=== PATIENT | female | born 1940 | race Asian ===

== ENCOUNTER → 2016-09-11 | Outpatient (REF) | payer MEDICARE, OTHER ==
[2016-09-11 14:53] LABS: MEAN CORPUSCULAR HGB CONC 33.8 g/dl (32.0-36.5); MEAN CORPUSCULAR VOLUME 94.6 fl (80.0-96.0); RED CELL DISTRIBUTION WIDTH 11.5 % (11.5-14.5); WHITE BLOOD COUNT 3.8 K/mm3 (4.0-10.0)
[2016-09-11 15:02] LABS: ALBUMIN 4.1 GM/DL (3.2-5.2); ALBUMIN/GLOBULIN RATIO 1.08 (1.00-1.93); BILIRUBIN,TOTAL 0.5 MG/DL (0.2-1.0); CALCIUM LEVEL 9.4 MG/DL (8.8-10.2); CREATININE FOR GFR 1.11 MG/DL (0.55-1.02); PERCENT SATURATION 30.9 % (13.2-37.4); POTASSIUM SERUM 3.8 MEQ/L (3.5-5.1); TOTAL PROTEIN 7.9 GM/DL (6.4-8.2)
== END ==
LOC: M SFHCLACO 09:43
PROVIDERS: ATTEND Physician Assistant
DX: D50.8 Other iron deficiency anemias (principal); I10 Essential (primary) hypertension; E78.2 Mixed hyperlipidemia; E11.21 Type 2 diabetes mellitus with diabetic nephropathy

== ENCOUNTER → 2016-12-25 | Outpatient (CLI) | payer MEDICARE, OTHER ==
[~2016-12-25] MED LIST: ACET1TAB17 PO; ALEN70TA39 PO; AMLO10TA2 PO; ATOR1TAB19 PO; CALC1TAB74 PO; DOCU100C16 PO; FISH100049 PO; HYDR25TAB PO; LOSA100T36 PO; OMEP40CA2 PO; POTA10CA PO; SITA50TAB PO; VITA50TA49 PO; VITMTA PO
--- NOTE | 2016-12-25 11:23 | REPMRS ---
Patient History The patient states she had a clinical breast exam in Patient is postmenopausal. No known family history of cancer. Digital Woman Screen Mammo: December 25, 2016 - Exam #: [id number] Bilateral CC and MLO view(s) were taken. Technologist: Deanna Ramos, Technologist Prior study comparison: December 13, 2015, digital woman screen mammo performed at [facility]. December 12, 2014, digital woman screen mammo performed at [facility]. November 15, 2013, digital woman screen mammo performed at [facility]. FINDINGS: The breast tissue is heterogeneously dense. This may lower the sensitivity of mammography. There is a moderate amount of heterogeneously dense fibroglandular tissue which is fairly symmetric. There is no interval development of dominant mass, architectural distortion, or clustered microcalcification typical of malignancy. There has been no change in the appearance of the mammogram from the prior studies. ASSESSMENT: BI-RADS/ACR category 1 mammogram. Negative. Recommendation Routine screening mammogram of both breasts in 1 year (for women over age 40). This mammogram was interpreted with the aid of an FDA-approved computer-aided dectection system. Electronically Signed By: Emery Baum MD 12/25/16 0023
== END ==
LOC: M WHC 09:39
PROVIDERS: ATTEND Physician Assistant
DX: Z12.31 Encounter for screening mammogram for malignant neoplasm of breast (principal)

== ENCOUNTER → 2017-03-31 | Outpatient (REF) | payer MEDICARE, OTHER ==
[2017-03-31 16:25] LABS: ALBUMIN 3.9 GM/DL (3.2-5.2); ALBUMIN/GLOBULIN RATIO 1.15 (1.00-1.93); BILIRUBIN,TOTAL 0.5 MG/DL (0.2-1.0); CALCIUM LEVEL 9.7 MG/DL (8.8-10.2); CREATININE FOR GFR 1.22 MG/DL (0.55-1.02); GLOMERULAR FILTRATION RATE 45.7 (>39); PERCENT SATURATION 19.9 % (13.2-45.0); POTASSIUM SERUM 4.5 MEQ/L (3.5-5.1); TOTAL PROTEIN 7.3 GM/DL (6.4-8.2)
[2017-03-31 23:23] LABS: MEAN CORPUSCULAR HGB CONC 33.7 g/dl (32.0-36.5); MEAN CORPUSCULAR VOLUME 97.7 fl (80.0-96.0); RED CELL DISTRIBUTION WIDTH 12.2 % (11.5-14.5); WHITE BLOOD COUNT 4.3 10^3/uL (4.0-10.0)
== END ==
LOC: M SFHCLACO 09:35
PROVIDERS: ATTEND Physician Assistant
DX: D50.8 Other iron deficiency anemias (principal); I10 Essential (primary) hypertension; E78.2 Mixed hyperlipidemia; E11.21 Type 2 diabetes mellitus with diabetic nephropathy

== ENCOUNTER 2017-04-17 11:28 | Day surgery (SDC) | payer MEDICARE, OTHER ==
[~2017-04-17] VITALS: Ht 157.5 cm; Wt 54.3 kg
[2017-04-17] MEDS: NS 1,000 ML IV SCH (12:06)
[2017-04-17 12:12] LABS: BASO % 0.4 % (0.0-1.0); EOS # 0.1 10^3/uL (0.0-0.50); EOS % 1.1 % (0.0-3.0); IMMATURE GRANULOCYTE % 0.2 % (0-0); LYMPH # 1.4 10^3/uL (1.5-4.5); LYMPH % 30.4 % (24.0-44.0); MEAN CORPUSCULAR HEMOGLOBIN 33.4 pg (27.0-33.0); MEAN CORPUSCULAR HGB CONC 34.4 g/dl (32.0-36.5); MEAN CORPUSCULAR VOLUME 97.1 fl (80.0-96.0); MONO # 0.5 10^3/uL (0.0-0.8); MONO % 9.6 % (0.0-5.0); NEUTROPHILS # 2.8 10^3/uL (1.8-7.7); NEUTROPHILS % 58.3 % (36.0-66.0); PLATELET COUNT, AUTOMATED 249 10^3/uL (150-450); RED CELL DISTRIBUTION WIDTH 12.1 % (11.5-14.5); WHITE BLOOD COUNT 4.7 10^3/uL (4.0-10.0)
--- NOTE | 2017-04-17 12:25 | REP ---
PORTABLE CHEST: AP portable view of the chest is performed. There is no acute infiltrate. There is mild cardiomegaly. There is mild calcification and tortuosity of the thoracic aorta. IMPRESSION: Mild cardiomegaly. No acute infiltrate. Signed by Jagdish Escobedo MD 04/20/2017 09:49 A
[2017-04-17 12:28] LABS: INR 0.99
[2017-04-17] MEDS ORDERED: AMLO10TA2 PO (12:28)
[2017-04-17] MEDS ORDERED: ATOR1TAB19 PO (12:28)
[2017-04-17] MEDS ORDERED: ACET1TAB17 PO (12:28)
[2017-04-17] MEDS ORDERED: FISH100049 PO (12:28)
[2017-04-17] MEDS ORDERED: ALEN70TA39 PO (12:28)
[2017-04-17] MEDS ORDERED: POTA10CA PO (12:28)
[2017-04-17] MEDS ORDERED: SITA50TAB PO (12:28)
[2017-04-17] MEDS ORDERED: LOSA100T36 PO (12:28)
[2017-04-17] MEDS ORDERED: VITA50TA49 PO (12:28)
[2017-04-17] MEDS ORDERED: CALC1TAB74 PO (12:28)
[2017-04-17] MEDS ORDERED: DOCU100C16 PO (12:28)
[2017-04-17] MEDS ORDERED: OMEP40CA2 PO (12:28)
[2017-04-17] MEDS ORDERED: VITMTA PO (12:28)
[2017-04-17] MEDS ORDERED: HYDR25TAB PO (12:28)
[2017-04-17 13:13] LABS: ANION GAP 6 MEQ/L (8-16); BLOOD UREA NITROGEN 23 MG/DL (7-18); CALCIUM LEVEL 9.4 MG/DL (8.8-10.2); CARBON DIOXIDE LEVEL 28 MEQ/L (21-32); CHLORIDE LEVEL 99 MEQ/L (98-107); CREATININE FOR GFR 1.19 MG/DL (0.55-1.02); FREE T4 1.02 NG/DL (0.76-1.46); GLOMERULAR FILTRATION RATE 47.1 (>39); GLUCOSE, FASTING 109 MG/DL (83-110); POTASSIUM SERUM 3.7 MEQ/L (3.5-5.1); SODIUM LEVEL 133 MEQ/L (136-145)
[2017-04-17] MEDS ORDERED: ceFAZolin 1GM INJ (J0690) IM ONE (17:00)
[2017-04-17] MEDS ORDERED: ceFAZolin 1GM INJ (J0690) As Ordered ONE (19:42)
[2017-04-17] MEDS ORDERED: MUPIROCIN 2% OINT 22 GM TUBE As Ordered ONE (20:31)
[2017-04-17] MEDS ORDERED: LIDOCAINE 1% SDV INJ 30 ML VIAL As Ordered ONE (20:31)
[2017-04-17] MEDS ORDERED: ISOVUE-300 61% 50ML VIAL (Q9967) As Ordered ONE (20:31)
[2017-04-17] MEDS ORDERED: VANCOMYCIN 1000 MG/20 ML VIAL (J3370) As Ordered ONE (20:32)
[2017-04-17] MEDS ORDERED: ATORVASTATIN 10 MG TAB PO SCH (21:00)
[2017-04-17] MEDS ORDERED: fentaNYL 100 MCG/2 ML INJECTION (J3010) As Ordered ONE (22:01)
[2017-04-17] MEDS ORDERED: PROPOFOL 200 MG/20 ML VIAL As Ordered ONE (22:01)
[2017-04-17] MEDS ORDERED: MIDAZOLAM INJ 2 MG/2 ML VIAL (J2250) As Ordered ONE (22:01)
[2017-04-17] MEDS ORDERED: LIDOCAINE 2% INJ 100 MG/5 ML SDV (FOR ANES.) As Ordered ONE (22:01)
[2017-04-17 23:15] VITALS: BP 181/80
[2017-04-17 23:45] VITALS: BP 156/73
[2017-04-18] VITALS (9 sets, daily range): BP systolic 128–186; BP diastolic 61–86
[2017-04-18] MEDS ORDERED: SLF 3 ML SYR IV PRN
[2017-04-18] MEDS: ASCORBIC ACID 250 MG TAB PO SCH ×2 (00:04→09:36)
[2017-04-18] MEDS: NS 1,000 ML IV SCH (01:48)
[2017-04-18] MEDS: ACETAMINOPHEN TAB 650MG DOSE (2X325MG) PO PRN ×2 (03:00→11:06)
--- NOTE | 2017-04-18 05:52 | ECGEPIP ---
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
[2017-04-18] MEDS ORDERED: SLF 3 ML SYR IV SCH (06:00)
--- NOTE | 2017-04-18 06:48 | RO ---
DATE OF PROCEDURE: 04/17/2017 PREOPERATIVE DIAGNOSIS: Symptomatic 2:1 second-degree atrioventricular (AV) block POSTOPERATIVE DIAGNOSIS: Symptomatic 2:1 second-degree atrioventricular block. PROCEDURE: Implantation of a permanent dual chamber pacemaker system ([employer]). SURGEON: Dr. Michael Yip HEAD SWAMPER: None. ANESTHESIA: Lidocaine 1%/monitored anesthetic care. FINDINGS: Symptomatic 2:1 second-degree AV block. No specimens. Estimated blood loss less than 50 mL. No blood products replaced. No drains. No complications. PROCEDURE DESCRIPTION: The patient was prepped and draped over the left pectoral region. 3M Ioban film was applied. Lidocaine 1% was used for local anesthetic. A left subclavian venogram was performed via a left antecubital vein using 20 mL consisting of 2/3 contrast, 1/3 normal saline and was used to get percutaneous access with a micropuncture needle into the left subclavian vein in real time during the left subclavian venogram. This was guidewire exchanged for a guidewire that came with 8 Australian sheath. Next, incision was made about 1 cm below the entry site of the guidewire and approximately 2-1/2 inches in length, roughly parallel to the left clavicle using a PEAK PlasmaBlade. The PEAK PlasmaBlade was used to get through the fatty layer and fibrous Randa's fascia. The pacemaker was then formed colonoscopy the prepectoral fascia from the Randa's fascia using blunt dissection using two fingers in a caudal direction. Next, the guidewire was pulled through the skin into the incision site. Next, another micropuncture needle was used to get a separate vein access at the level of the pectoral muscle more lateral to the entry site of the first guidewire using the first guidewire as a fluoroscopic marker. This was guidewire exchanged for a guidewire that came with the other 8 Australian sheath. Next, an 8 Australian sheath was placed over the more lateral of the guidewires and was used for vein access for the ventricular lead. The ventricular lead was placed into the right ventricular apex position where it was secured with a total of 10 turns. This position was found to be electrically and anatomically satisfactory and without diaphragmatic stimulation palpable on either side at 10 volt high output pacing. The sheath was removed and the ventricular lead was secured to the pectoral muscle using supplied tie down sleeve using three individual sutures consisting of #0 Ethibond. Next, the other 8 Australian sheath was placed over the other guidewire and advanced into the vein and used for vein access for the atrial lead. The atrial lead was placed into the right atrial appendage position with the help of a preformed J-stylet and was secured with a total of 10 turns. This position was found to be electrically and anatomically satisfactory. The 8 Australian sheath was then broken apart and removed, and the atrial lead was secured to the pectoral muscle using the supplied tie down sleeve using three individual sutures consisting of #0 Ethibond. Another #0 Ethibond suture was then placed to the pectoral muscle to serve as the tie down for the pacemaker pulse generator. Next, I took a TYRX antimicrobial envelope (the inside) and cut into 4 pieces and these were placed into the floor of the pocket. Next, the pacemaker pulse generator was brought into the field and the terminal pins of the ventricular and atrial leads were placed into their respective ports and each on was secured in the header by tightening the setscrews with hex screwdriver. Next, excess lead material was the coiled underneath the pacemaker pulse generator and placed along with the pacemaker pulse generator into the pacemaker pocket. The pacemaker pulse generator was then secure to the pectoral muscle with the previously placed #0 Ethibond suture. The deep layer of the incision was then closed using individual sutures consisting of #2-0 Vicryl. The skin was closed using belinda. The patient tolerated the procedure well without any immediate complications. The pacemaker pulse generator implanted was a [employer] [facility] MRI, Model #[id number] with Serial #[id number]. The right atrial lead implanted was a [employer] Tendril MRI, Model #[id number], 46 cm with Serial #[id number]. Final testing in the operating room in bipolar configuration for right atrial lead showed capture threshold of 0.9 V at 0.4 ms with P wave amplitude of 2.4 mV and lead impedance of 460 ohms. The ventricular lead implanted was a [employer] Tendril MRI, Model #[id number], 52 cm with Serial #[id number]. Final testing for the right ventricular lead in bipolar configuration showed a capture threshold of 0.6 V at 0.4 ms with R wave amplitude of 6.6 mV and lead impedance of 833 485 ohms.
--- NOTE | 2017-04-18 08:00 | REP ---
Portable chest, 10:57 p.m., single AP view, patient sitting: Comparison is 12:02 p.m. There is mild interstitial coarsening as an interval change compatible with vascular engorgement. There is no focal infiltrate or pleural effusion. There is a dual-chamber pacemaker as an interval change. There are skin belinda adjacent to the pacemaker pack. There is no pneumothorax or hemothorax. Coleen, mediastinum, and bony thorax are unremarkable. Signed by Jagdish Cifuentes MD 04/18/2017 07:52 A
--- NOTE | 2017-04-18 08:07 | REP ---
PA and lateral chest: Comparison 04/17/2017. The cardiac size is mildly enlarged, unchanged. The lung pérez are clear. The essie, mediastinum, and bony thorax are unremarkable. The vascular engorgement identified on the comparison study has resolved. There is a dual-chamber pacemaker with skin belinda adjacent to the pacemaker pack. There is no pneumothorax or hemothorax. Signed by Jagdish Cifuentes MD 04/18/2017 07:59 A
--- NOTE | 2017-04-18 08:57 | REP ---
Pacemaker placement, intraoperative fluoroscopic views: The procedure is performed by the edge cutting machine operator, Dr. Yip. Two intraprocedural fluoroscopic views are performed. The pacemaker pacing tips are in satisfactory positions on the two views provided. Fluoroscopic exposure time is 3 minutes and 43 seconds. Fluoroscopic images are performed last image hold technology. These images require no additional radiation Signed by Jagdish Cifuentes MD 04/18/2017 08:49 A
[2017-04-18] MEDS ORDERED: hydroCHLOROthiazide 25 MG TAB PO SCH (09:00)
[2017-04-18] MEDS ORDERED: SITagliptin 50 MG TAB (JANUVIA) PO SCH (09:00)
[2017-04-18] MEDS ORDERED: OMEPRAZOLE 20 MG CAP PO SCH (09:00)
[2017-04-18] MEDS ORDERED: DOCUSATE SODIUM 100 MG CAP PO SCH (09:00)
[2017-04-18] MEDS ORDERED: POTASSIUM CHLORIDE 10 MEQ SR TABLET PO SCH (09:00)
[2017-04-18] MEDS ORDERED: amLODIPine 10 MG TAB PO SCH (09:00)
[2017-04-18] MEDS ORDERED: CALCIUM/VITAMIN D 500 MG TAB PO SCH (09:00)
[2017-04-18] MEDS ORDERED: PYRIDOXINE 50 MG TAB PO SCH (09:00)
[2017-04-18] MEDS ORDERED: LOSARTAN 50 MG TAB PO SCH (09:00)
--- NOTE | 2017-04-18 11:36 | ECGEPIP ---
Stationary ECG Study [facility] Test Date: 2017-04-17 Pat Name: MUSHTAQ GARIBAY Department: Room: [place] [address] Gender: F Career Developer: ANIBAL : 1940 Requested By: Michael Yip Order Number: [id number] Reading MD: Ricardo Figueroa Measurements Intervals [place] Rate: 80 P: 77 [place]: 224 QRS: -79 QRSD: 148 T: 99 QT: 439 QTc: 509 Interpretive Statements SINUS RHYTHM VENTRICULAR PACING SINCE 11:37 PACEMAKER IS NEW Electronically Signed On 04-18-2017 11:35:49 EDT by Ricardo Figueroa
[2017-04-19] MEDS ORDERED: PREVNAR 13 VACCINE SYRINGE (CPT CODE:90670) IM ONE (09:00)
== END 2017-04-18 14:20 | disposition home or self-care (01) ==
LOC: M ED 11:28 → EDBD 11:28 → M SDC 12:43 → M PCU 23:13 → M SDC 04-18 14:20
PROVIDERS: ATTEND Internal Medicine Cardiovascular Disease
DX: I44.1 Atrioventricular block, second degree (principal); I12.9 Hypertensive chronic kidney disease with stage 1 through stage 4 chronic kidney disease, or unspecified chronic kidney disease; E78.2 Mixed hyperlipidemia; D50.8 Other iron deficiency anemias; K21.9 Gastro-esophageal reflux disease without esophagitis; M81.0 Age-related osteoporosis without current pathological fracture; I83.10 Varicose veins of unspecified lower extremity with inflammation; D70.9 Neutropenia, unspecified; E87.6 Hypokalemia; N28.9 Disorder of kidney and ureter, unspecified; E11.21 Type 2 diabetes mellitus with diabetic nephropathy; N18.3 Chronic kidney disease, stage 3 (moderate); F43.9 Reaction to severe stress, unspecified; R00.1 Bradycardia, unspecified; Z88.1 Allergy status to other antibiotic agents; Z88.8 Allergy status to other drugs, medicaments and biological substances; Z79.899 Other long term (current) drug therapy; Z87.891 Personal history of nicotine dependence
CPT/HCPCS: 33208; 71010; 71020; 76000; 80048; 82550; 82553; 84439; 84443; 84484; 85025; 85610; 85730; 86850; 86900; 86901; 93005; 93041; 94760; 96374; 99285; C1785; C1882; C1898; G0463; J0690; J2250; J3010; Q9967

== ENCOUNTER → 2017-09-15 | Outpatient (REF) | payer MEDICARE, OTHER ==
[2017-09-15 14:15] LABS: HEMATOCRIT 36.4 % (36.0-47.0); HEMOGLOBIN 12.5 g/dl (12.0-16.0); MEAN CORPUSCULAR HEMOGLOBIN 33.1 pg (27.0-33.0); MEAN CORPUSCULAR HGB CONC 34.3 g/dl (32.0-36.5); MEAN CORPUSCULAR VOLUME 96.3 fl (80.0-96.0); PLATELET COUNT, AUTOMATED 291 10^3/uL (150-450); RED BLOOD COUNT 3.78 10^6/uL (4.00-5.40); RED CELL DISTRIBUTION WIDTH 11.5 % (11.5-14.5); WHITE BLOOD COUNT 4.1 10^3/uL (4.0-10.0)
[2017-09-15 14:43] LABS: ESTIMATED AVERAGE GLUCOSE 126 MG/DL (60-110)
[2017-09-15 14:44] LABS: ALBUMIN 4.3 GM/DL (3.2-5.2); ALBUMIN/GLOBULIN RATIO 1.13 (1.00-1.93); ALKALINE PHOSPHATASE 44 U/L (45-117); ALT/SGPT 23 U/L (12-78); ANION GAP 9 MEQ/L (8-16); AST/SGOT 20 U/L (7-37); BILIRUBIN,TOTAL 0.5 MG/DL (0.2-1.0); BLOOD UREA NITROGEN 31 MG/DL (7-18); CALCIUM LEVEL 9.7 MG/DL (8.8-10.2); CARBON DIOXIDE LEVEL 28 MEQ/L (21-32); CHLORIDE LEVEL 98 MEQ/L (98-107); CHOLESTEROL LEVEL 190 MG/DL (<200); CHOLESTEROL RISK RATIO 2.289 (<5); CREATININE FOR GFR 1.04 MG/DL (0.55-1.30); FERRITIN 73 NG/ML (8-252); GLOMERULAR FILTRATION RATE 54.8 (>39); GLUCOSE, FASTING 112 MG/DL (70-100); HDL CHOLESTEROL 83 MG/DL (>40); IRON (FE) 87 UG/DL (50-170); LDL CHOLESTEROL 97.2 MG/DL (<100); NON-HDL-C 107 MG/DL; PERCENT SATURATION 26.9 % (13.2-45.0); POTASSIUM SERUM 3.9 MEQ/L (3.5-5.1); SODIUM LEVEL 135 MEQ/L (136-145); TOTAL IRON BINDING CAPACITY 323 UG/DL (250-450); TOTAL PROTEIN 8.1 GM/DL (6.4-8.2); TRIGLYCERIDES LEVEL 49 MG/DL (<150)
== END ==
LOC: M SFHCLACO 09:25
DX: E11.21 Type 2 diabetes mellitus with diabetic nephropathy (principal); I10 Essential (primary) hypertension; E78.2 Mixed hyperlipidemia; D50.8 Other iron deficiency anemias
CPT/HCPCS: 83550

== ENCOUNTER → 2017-12-16 | Outpatient (CLI) | payer MEDICARE, OTHER | LOC: M WHC 09:13 | DX: Z12.31 Encounter for screening mammogram for malignant neoplasm of breast (principal) | CPT/HCPCS: 77067 ==

== ENCOUNTER → 2018-10-19 | Outpatient (REF) | payer MEDICARE, OTHER ==
[~2018-10-19] MED LIST changes: -ACET1TAB17 PO; +ACET1TAB55 PO; -ALEN70TA39 PO; +ALEN70TA74 PO; -AMLO10TA2 PO; +AMLO10TA5 PO; +KLOR10TA76 PO; -LOSA100T36 PO; +LOSA100T50 PO; -POTA10CA PO; -VITA50TA49 PO; +VITA50TA7 PO
[2018-10-19 17:22] LABS: FOLATE > 24.0 NG/ML (>5.4); VITAMIN B12 LEVEL 1622 PG/ML (247-911)
== END ==
LOC: M LAB REF 12:57
PROVIDERS: ATTEND Internal Medicine Nephrology
DX: D53.1 Other megaloblastic anemias, not elsewhere classified (principal)

== ENCOUNTER → 2018-11-05 | Outpatient (REF) | payer MEDICARE, OTHER ==
[~2018-11-05] MED LIST changes: +LASI20TA3 PO; +NORV5TAB PO; +TRAD5TAB PO
[2018-11-05 17:03] LABS: APPEARANCE, URINE CLEAR (CLEAR); BACTERIA, URINE AUTO NEGATIVE (NEGATIVE); BILIRUBIN, URINE AUTO NEGATIVE (NEGATIVE); BLOOD, URINE BLOOD 1+ (NEGATIVE); COLOR, URINE YELLOW (YELLOW); GLUCOSE, URINE (UA) AUTO NEGATIVE (NEGATIVE); KETONE, URINE AUTO NEGATIVE (NEGATIVE); LEUKOCYTE ESTERASE, URINE AUTO NEGATIVE (NEGATIVE); NITRITE, URINE AUTO NEGATIVE (NEGATIVE); PROTEIN, URINE AUTO NEGATIVE (NEGATIVE); RBC, URINE AUTO 3 /HPF (0-3); SPECIFIC GRAVITY URINE AUTO 1.008 (1.002-1.035); SQUAMOUS EPITHELIAL CELL UR AU 1 /HPF (0-6); UROBILINOGEN, URINE AUTO 0.2 mg/dL (0.0-2.0); WBC, URINE AUTO 1 /HPF (0-3)
== END ==
LOC: M LAB REF 16:02
PROVIDERS: ATTEND Internal Medicine Nephrology
DX: N39.0 Urinary tract infection, site not specified (principal)
CPT/HCPCS: 81001; 81002; 87086; G0463

== ENCOUNTER 2018-11-21 07:30 | Emergency (ER) | payer MEDICARE, OTHER ==
[~2018-11-21] VITALS: Ht 154.9 cm; Wt 53.2 kg
[~2018-11-21 07:30] MED LIST changes: -LASI20TA3 PO; -NORV5TAB PO; -TRAD5TAB PO
[2018-11-21] MEDS ORDERED: LASI20TA3 PO (08:16)
[2018-11-21] MEDS ORDERED: TRAD5TAB PO (08:16)
[2018-11-21] MEDS ORDERED: NORV5TAB PO (08:16)
[2018-11-21 08:19] LABS: BASO % 0.2 % (0.0-1.0); EOS # 0.1 10^3/uL (0.0-0.50); EOS % 0.6 % (0.0-3.0); HEMATOCRIT 33.3 % (36.0-47.0); HEMOGLOBIN 11.2 g/dl (12.0-15.5); LYMPH % 12.9 % (24.0-44.0); MEAN CORPUSCULAR HEMOGLOBIN 32.7 pg (27.0-33.0); MEAN CORPUSCULAR HGB CONC 33.6 g/dl (32.0-36.5); MEAN CORPUSCULAR VOLUME 97.1 fl (80.0-96.0); MONO # 0.8 10^3/uL (0.0-0.8); MONO % 9.9 % (0.0-5.0); NEUTROPHILS # 6.1 10^3/uL (1.8-7.7); NEUTROPHILS % 76.3 % (36.0-66.0); PLATELET COUNT, AUTOMATED 495 10^3/uL (150-450); RED BLOOD COUNT 3.43 10^6/uL (4.00-5.40); WHITE BLOOD COUNT 8.1 10^3/uL (4.0-10.0)
[2018-11-21 08:27] VITALS: BP 147/73
[2018-11-21] MEDS ORDERED: FUROSEMIDE 20 MG TAB PO ONE (08:30)
[2018-11-21] MEDS ORDERED: amLODIPine 5 MG TAB PO ONE (08:30)
[2018-11-21 08:50] LABS: MONO REFLEX EBV COMP NEGATIVE (NEGATIVE)
[2018-11-21 08:53] LABS: ALBUMIN 3.4 GM/DL (3.2-5.2); ALT/SGPT 14 U/L (12-78); BILIRUBIN,DIRECT 0.1 MG/DL (0.0-0.2); BILIRUBIN,TOTAL 0.4 MG/DL (0.2-1.0); BLOOD UREA NITROGEN 13 MG/DL (7-18); CALCIUM LEVEL 9.6 MG/DL (8.8-10.2); CARBON DIOXIDE LEVEL 29 MEQ/L (21-32); CHLORIDE LEVEL 99 MEQ/L (98-107); CK-MB VALUE MASS < 1.0 NG/ML (<3.6); CPK CREATINE PHOSPHOKINASE 54 U/L (26-192); CREATININE FOR GFR 0.75 MG/DL (0.55-1.30); FREE T4 1.18 NG/DL (0.76-1.46); GLOMERULAR FILTRATION RATE > 60.0 (>39); GLUCOSE, FASTING 128 MG/DL (70-100); LIPASE 68 U/L (73-393); MAGNESIUM LEVEL 1.9 MG/DL (1.8-2.4); MB/CK RELATIVE INDEX 1.85 (< OR =4); SODIUM LEVEL 136 MEQ/L (136-145); TOTAL PROTEIN 7.7 GM/DL (6.4-8.2); TROPONIN I < 0.02 NG/ML (< 0.10)
--- NOTE | 2018-11-21 08:55 | REP ---
Clinical: Chest pain and weakness. Technique: PA and lateral. Comparison: 04/18/2017. Findings: Mediastinum and cardiac silhouette are normal. Dual lead pacemaker in stable position. Very subtle irregular area of opacity at the left base with possible central cavitation cannot definitively be excluded. This is not confirmed on lateral radiograph and represents a change from prior examination. While these findings may be erroneous and due to technical factors, chest CT may be warranted for further investigation. Remainder of lung pérez are clear. No effusion. No pneumothorax. Skeletal structures are intact. Impression: Irregular focus of gas with subtle surrounding opacity at the left base cannot be excluded. Consider chest CT for follow-up. Electronically Signed by Ronald Arellano MD 11/21/2018 08:48 A
[2018-11-21] MEDS ORDERED: ISOVUE-370 76% 100ML VIAL (Q9967) As Ordered ONE (09:36)
--- NOTE | 2018-11-21 10:07 | REP ---
Clinical: Acute headache. Findings: Age-related atrophy and microvascular ischemic changes are appreciated. The ventricles and sulci are symmetric. Escobedo-white differentiation is maintained. There is no evidence for acute intracranial hemorrhage, mass/mass effect, pathology or infarction. No extra-axial fluid collection. Calvarium is intact. Impression: Age related atrophy and microvascular ischemic changes. No acute intracranial hemorrhage, infarction, or mass/mass effect. Electronically Signed by Ronald Arellano MD 11/21/2018 09:59 A
--- NOTE | 2018-11-21 10:12 | REP ---
Clinical: Abnormal chest x-ray findings. Technique: Axial contrast enhanced images from the thoracic inlet to the upper abdomen with coronal and sagittal re-formations using 100 ml Isovue 370 intravenous contrast material. Findings: The lung pérez are well-aerated and clear. No consolidation, nodule or mass lesion is appreciated. The subtle irregular opacity with central gas suspected by x-ray is not visualized and may have been secondary to technique. No effusion. No pneumothorax. Tracheobronchial tree is patent. No adenopathy. Atherosclerotic changes to the thoracic aorta and coronary arteries noted without aortic aneurysm or dissection. No cardiomegaly or pericardial effusion. No mediastinal or hilar adenopathy is appreciated. Pacemaker identified in satisfactory position. Surrounding musculoskeletal structures without focal osseous abnormality. Impression: 1. No acute mediastinal or pleuroparenchymal process appreciated. 2. Atherosclerotic changes to the thoracic aorta and coronary arteries. 3. Suspicious area by x-ray is not confirmed by chest CT and may have been secondary to technical factors and/or summation shadows. Electronically Signed by Ronald Arellano MD 11/21/2018 10:03 A
--- NOTE | 2018-11-21 10:15 | REP ---
Clinical: Weakness and weight loss. Technique: Axial contrast enhanced images from the lung bases to the pubic symphysis using 100 ml Isovue 370 intravenous contrast material with coronal and sagittal re-formations. Comparison: 01/25/2016. Findings: Lung bases are clear. Liver, spleen, pancreas, and bilateral adrenal glands are normal. The kidneys demonstrate few scattered hypodensities suggesting cysts without perinephric stranding or hydronephrosis. The gallbladder is distended and includes 13 mm gallstone without pericholecystic fluid to suggest acute cholecystitis. The enteric system is without obstruction or acute inflammatory process. Scattered diverticulosis noted without acute diverticulitis. Normal terminal ileum and appendix identified in the right lower quadrant. Pelvis demonstrates normal bladder and age-appropriate uterus/adnexa. No pelvic fluid. No ascites. No free air. No adenopathy. Atherosclerotic changes to the aorta and vasculature noted without aneurysm or dissection. Musculoskeletal structures demonstrate age-related degenerative changes without focal osseous abnormality. Impression: 1. Distended gallbladder with gallstone but no further evidence to suggest acute cholecystitis. 2. Diverticulosis without acute diverticulitis. 3. Renal hypodensities compatible with cysts. 4. Atherosclerotic changes to the vasculature and degenerative changes the musculoskeletal structures appear chronic. 5. No acute abdominopelvic pathology appreciated. Specifically, no ascites, adenopathy, or focal inflammatory changes. Electronically Signed by Ronald Arellano MD 11/21/2018 10:07 A
[2018-11-21 10:39] VITALS: BP 154/83
--- NOTE | 2018-11-21 19:36 | ECGEPIP ---
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
--- NOTE | 2018-11-24 16:40 | ED PDOC ---
Post-Departure Follow-Up phuong emanual faxed formal report of ct abd/p for fu Yissel Burch MD November 24, 2018 16:39
[2018-11-25 00:11] LABS: EBV AB TO NUCLEAR ANTIGEN 82.2 U/mL (0.0-17.9); EBV VIRAL CAPSID AG IgM <36.0 U/mL (0.0-35.9); Lyme Disease IgG/IgM Antibodie <0.91 ISR (0.00-0.90); Lyme Disease IgM Ab Quantitati <0.80 index (0.00-0.79)
== END 2018-11-21 10:47 | disposition home or self-care (01) ==
LOC: M ED 07:30 → EDBD 07:30 → M ED 10:47
DX: R53.1 Weakness (principal); R31.9 Hematuria, unspecified; Z95.0 Presence of cardiac pacemaker; R94.31 Abnormal electrocardiogram [ECG] [EKG]; E11.9 Type 2 diabetes mellitus without complications; I10 Essential (primary) hypertension; Z86.73 Personal history of transient ischemic attack (TIA), and cerebral infarction without residual deficits; K57.30 Diverticulosis of large intestine without perforation or abscess without bleeding; R93.429 Abnormal radiologic findings on diagnostic imaging of unspecified kidney; I70.90 Unspecified atherosclerosis; Z79.899 Other long term (current) drug therapy; Z88.1 Allergy status to other antibiotic agents; Z88.8 Allergy status to other drugs, medicaments and biological substances
CPT/HCPCS: 70450; 71046; 71260; 74177; 80048; 80076; 81001; 82550; 82553; 83690; 83735; 84439; 84443; 84484; 85025; 86308; 86617; 86663; 86664; 86665; 87040; 93005; 93041; 99285; Q9967

== ENCOUNTER → 2019-01-26 | Outpatient (CLI) | payer MEDICARE, OTHER ==
[~2019-01-26] MED LIST changes: +LASI20TA3 PO; +NORV5TAB PO; +TRAD5TAB PO
--- NOTE | 2019-01-26 10:25 | REPMRS ---
Patient History The patient states she had a clinical breast exam in 12/2018. Patient is postmenopausal. No known family history of cancer. No Hormone Replacement Therapy Digital Woman Screen Mammo: January 26, 2019 - Exam #: [id number] Bilateral CC and MLO view(s) were taken. Technologist: Milagro Dias, Technologist Prior study comparison: December 16, 2017, bilateral digital woman screen mammo performed at [facility]. December 25, 2016, digital woman screen mammo performed at [facility]. December 13, 2015, digital woman screen mammo performed at [facility]. FINDINGS: There are scattered fibroglandular densities. There is a pacemaker power plant projecting over the left axilla on the MLO view. There has been no change in the appearance of the mammogram from the prior studies. There is a mild amount of scattered fibroglandular density which is fairly symmetric. There is no interval development of dominant mass, architectural distortion, or grouped microcalcification suggestive of malignancy. 3-D tomosynthesis shows no additional findings. Assessment: BI-RADS/ACR category 2 mammogram. Benign Findings. Recommendation Routine screening mammogram of both breasts in 1 year (for women over age 40). This patient's Lifetime Breast Cancer Risk is estimated at 2.7 %. This mammogram was interpreted with the aid of an FDA-approved computer-aided dectection system. Electronically Signed By: Emery Baum MD 01/26/19 [id number]
== END ==
LOC: M WHC 09:13
PROVIDERS: ATTEND Physician Assistant
DX: Z12.31 Encounter for screening mammogram for malignant neoplasm of breast (principal)

== ENCOUNTER → 2019-08-02 | Outpatient (CLI) | payer MEDICARE, OTHER ==
[~2019-08-02] MED LIST changes: +CONRAY-43 43% 50ML VIAL (Q9960) ONE; -OMEP40CA2 PO; +OMEP40CA97 PO
--- NOTE | 2019-08-02 11:30 | REP ---
CT ARTHROGRAPHY RIGHT SHOULDER WITH INTRA-ARTICULAR CONTRAST: HISTORY: Impingement syndrome. Pacemaker patient. No comparison radiographs. TECHNIQUE: The injection procedure is performed and dictated separately. Helical scanning is acquired. 3 mm axial images are reformatted. Oblique coronal and oblique sagittal MPR images are generated reviewed. CT ARTHROGRAPHIC FINDINGS: There are is good filling of the right glenohumeral articulation. There is no visible loose body. There is filling of the biceps tendon sheath and the biceps tendon appears focally enlarged consistent with biceps tendinosis. No discontinuity is seen. There is no visible rotator cuff tear. The contrast undermines the base of the superior labral cartilage which may imply a nondisplaced superior labral tear. Anterior and posterior labral cartilage appear intact. There is minimal spurring at the AC joint. No bony destructive lesion is seen. IMPRESSION: There is evidence of biceps tendinosis with localized thickening of biceps tendon distal to its genu. There is evidence of a nondisplaced SLAP tear of the superior labral cartilage. Mild AC joint spurring. Electronically Signed by Bert Baum MD 08/02/2019 06:51 P
--- NOTE | 2019-08-02 19:52 | REP ---
RIGHT SHOULDER ARTHROGRAM The procedure was performed under the direct supervision of Dr. Baum. The benefits and risks including but not limited to pain infection bleeding and anaphylaxis were explained to the patient and informed consent was obtained. The right glenohumeral joint space was localized using fluoroscopic guidance. The skin was prepped and draped in a sterile fashion. 1% lidocaine was used as a local anesthetic. Using fluoroscopic guidance a 22-gauge needle was inserted and advanced into the joint. 11 ml of Conray 43 was injected. The needle was removed and the patient has taken to CT scan for postprocedural imaging. The patient tolerated the procedure well and there were no immediate complications. Less than 6 seconds of fluoroscopy time was utilized for this procedure. Electronically Signed by BLAKE Phillips 08/02/2019 04:11 P Electronically Signed by Bert Baum MD 08/02/2019 07:42 P
== END ==
LOC: M RADPRO 08:43
PROVIDERS: ATTEND Orthopaedic Surgery Hand Surgery
DX: M75.21 Bicipital tendinitis, right shoulder (principal); S43.431A Superior glenoid labrum lesion of right shoulder, initial encounter; M75.41 Impingement syndrome of right shoulder; X58.XXXA Exposure to other specified factors, initial encounter; Y92.89 Other specified places as the place of occurrence of the external cause; Y93.89 Activity, other specified; Y99.8 Other external cause status
CPT/HCPCS: 23350; 73201; 77002; Q9960

== ENCOUNTER → 2020-01-11 | Outpatient (CLI) | payer MEDICARE, OTHER ==
[~2020-01-11] MED LIST changes: -AMLO10TA5 PO; +AMLO1TAB25 PO; -CONRAY-43 43% 50ML VIAL (Q9960) ONE
--- NOTE | 2020-01-11 14:17 | REPMRS ---
Patient History The patient states she has not had a clinical breast exam in over a year. No known family history of cancer. No Hormone Replacement Therapy 3D TOMOSYNTHESIS WAS PERFORMED. [facility] lifetime risk for breast cancer is 2.4%. ALEJO Torres. Digital Woman Screen Mammo: January 11, 2020 - Exam #: [id number] Bilateral CC and MLO view(s) were taken. Technologist: Morenita Oleary, Technologist Prior study comparison: January 26, 2019, bilateral digital woman screen mammo performed at [facility]. December 16, 2017, bilateral digital woman screen mammo performed at [facility]. FINDINGS: The breast tissue is heterogeneously dense. This may lower the sensitivity of mammography. There has been no change in the appearance of the mammogram from the prior studies. There is a moderate amount of residual fibroglandular tissue which is fairly symmetric. There is no interval development of dominant mass, areas of architectural distortion, or clustered microcalcification typical of malignancy. Assessment: BI-RADS/ACR category 1 mammogram. Negative Mammogram. Recommendation Routine screening mammogram in 1 year (for women over age 40). This mammogram was interpreted with the aid of an FDA-approved computer-aided dectection system. Electronically Signed By: Jagdish Escobedo MD 01/11/20 [id number]
== END ==
LOC: M WHC 12:08
PROVIDERS: ATTEND Physician Assistant
DX: Z12.31 Encounter for screening mammogram for malignant neoplasm of breast (principal)

== ENCOUNTER → 2021-01-14 | Outpatient (CLI) | payer MEDICARE, OTHER ==
[~2021-01-14] MED LIST changes: -ALEN70TA74 PO; +ALEN70TA82 PO; +HYDR-3490 PO; -HYDR25TAB PO; +OMEP40CA4 PO; -OMEP40CA97 PO; +PYRI50TA41 PO; -VITA50TA7 PO
--- NOTE | 2021-01-14 12:16 | REPMRS ---
Patient History The patient states she had a clinical breast exam in November 2020. No known family history of cancer. No Hormone Replacement Therapy Patient states no breast complaints today. Patient has signed MRS History Sheet. Digital Woman Screen Mammo: January 14, 2021 - Exam #: [id number] Bilateral CC and MLO view(s) were taken. Technologist: Tete Hallman Technologist Prior study comparison: January 11, 2020, bilateral digital woman screen mammo performed at [facility]. January 26, 2019, bilateral digital woman screen mammo performed at [facility]. December 16, 2017, bilateral digital woman screen mammo performed at [facility]. FINDINGS: The breast tissue is heterogeneously dense. This may lower the sensitivity of mammography. The [facility] volumetric breast density category is: C. A pacemaker power plant is again visualized projecting over the left axilla. There is a moderate amount of heterogeneously dense fibroglandular tissue which is fairly symmetric. There is no interval development of dominant mass, architectural distortion, or grouped microcalcification typical of malignancy. There has been no change in the appearance of the mammogram from the prior studies. 3-D tomosynthesis shows no additional findings. Assessment: BI-RADS/ACR category 2 mammogram. Benign Findings. Recommendation Routine screening mammogram of both breasts in 1 year (for women over age 40). This patient's [facility] Lifetime Breast Cancer RIsk is estimated at 2.1 %. This mammogram was interpreted with the aid of an FDA-approved computer-aided dectection system. Electronically Signed By: Emery Baum MD 01/14/21 2031
== END ==
LOC: M WHC 09:49
PROVIDERS: ATTEND Physician Assistant
DX: Z12.31 Encounter for screening mammogram for malignant neoplasm of breast (principal); Z95.0 Presence of cardiac pacemaker

== ENCOUNTER 2021-04-19 06:50 | Emergency (ER) | payer MEDICARE, OTHER ==
[~2021-04-19] VITALS: Ht 154.9 cm; Wt 49.1 kg
[~2021-04-19 06:50] MED LIST changes: -KLOR10TA76 PO; +POTA-136 PO
--- OUTSIDE RECORDS SUMMARY | 2021-04-19 06:56 | CCD | Continuity of Care Document ---
Author [facility] Address [address] [facility], [place] [address] Phone Unavailable Care Team Providers Care Design Intern Name Role Phone Layne Harris AUTM [phone] Michael Yip MD AUTM [phone] Mikael Crandall MD AUTM [phone] Problems Active Problems Provider Date Cardiac pacemaker in situ BRANDIN Maya Onset: 2017 Social History Type Date Description Comments Sex Unknown Tobacco Use Start: Unknown End: Unknown Patient is a former smoker 1 pack every 3-4 day. Quit in 2006. Allergies, Adverse Reactions, Alerts Description No Known Drug Allergies Medications Active Medications SIG Qnty Indications Ordering Provide r Date Docusate Sodium 100mg Capsules 1 by mouth twice a day as needed Unknown 04/26/2017 Vitamin C 250mg Tablets 1 by mouth twice every day Michael Yip MD 04/26/2017 Klor-Con 10 10Meq Tablets ER 2 by mouth every day Layne Harris PA 04/26/2017 Lipitor 10mg Tablets 1 by mouth every day at bedtime Layne Harris PA 04/26/2017 Fosamax 70mg Tablets one by mouth every week Layne Harris PA 04/26/[address] 1 by mouth every day Layne Harris PA 04/26/2017 Cozaar 100mg Tablets 1 by mouth every day Layne Harris PA 04/26/2017 Januvia 50mg Tablets 1 by mouth every day Layne Harris PA 04/26/2017 Hydrochlorothiazide 25mg Tablets 1 by mouth every day Layne Harris PA 04/26/2017 Centrum Silver 50+Women 50+Women T ablets 1 by mouth daily Unknown 04/26/2017 Calcium 600 + D [id number] Tab lets 1 by mouth every day Unknown 04/26/2017 Vitamin B6 250mg Tablets 1 by mouth daily Unknown 04/26/2017 Acetaminophen Extra Strength 500mg Tablets 1-2 by mouth as needed Unknown 04/26 Immunizations Description No Information Available Vital Signs Date Vital Result Comment 04/27/2017 1:02pm Weight 108.00 lb Home Weight 110lb Height 62 inches 5'2" BMI (Body Mass Index) 19.8 kg/m2 Results Description No Information Available Procedures Date Code Description Status 03/15/2021 49451 Remote Pacemaker/Cardio-Defibril lator Data Acquistion Completed 03/15/2021 51512 Remote Interrogation Device Eval Pacemaker System Up To 90 Days Completed 12/14/2020 42424 Remote Pacemaker/Cardio-Defibril lator Data Acquistion Completed 12/14/2020 83411 Remote Interrogation Device Eval Pacemaker System Up To 90 Days Completed Medical Devices Description No Information Available Encounters Description No Information Available Assessments Date Code Description Provider 03/15/2021 Z95.0 Presence of cardiac pacemaker [facility] 12/14/2020 Z95.0 Presence of cardiac pacemaker [facility] Plan of Treatment Future Appointment(s):* 06/14/2021 7:00 am - [facility] at Main Office 04/27/2017 - Tyra Sargent PA-C* I44.1 Atrioventricular block, second degree * All * Follow up:* Pacemaker interrogation in 3 weeks. Functional Status Description No Information Available Mental Status Description No Information Available Referrals Description No Information Available
--- OUTSIDE RECORDS SUMMARY | 2021-04-19 06:56 | CCD ---
Author Author [facility] Organization [facility] Address Unknown Phone Unavailable Care Team Providers Care Tablet Coater Name Role Phone Layne Harris Unavailable PROBLEMS Type Condition ICD9-CM Code [id number] Code Onset Dates Condition S tatus W/U Status Risk SNOMED Code Notes Problem Neutropenia D70.9 Active confirmed [id number] Stable Problem Essential hypertension I10 Active confirmed 63200696 Well- controlled on amlodipine, Klor-Con. No medication changes have been made Problem Esophageal reflux K21.9 Active confirmed 23 3900461 Well controlled on omeprazole, no medication changes at been made Problem Mixed hyperlipidemia E78.2 Active confirmed 116548926 Well controlled on atorvastatin and fish oil, no medication changes have been made Problem Hypokalemia E87.6 Active confirmed 16928128 Stable on current dose of potassium, no medication changes at been made Problem Iron deficiency anemia secondary to inadequate d ietary iron intake D50.8 Active confirmed 142414912 Stable on just multivitamins now, no medication changes have been made Problem 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 Active conf irmed 82220997 Well controlled on Januvia, no medication changes have been made Problem Chronic kidney disease, stage 3 N18.3 Active confi rmed 549368597 Stable and followed by nephrology Problem Inflammatory arthritis M19.90 Active confirmed 8485142 Improved with regimen prescribed by project management advisor Problem 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 Also, since the cold bothers her terribly, I encouraged her to visit her other daughter in [place] ALLERGIES Allergen (clinical drug ingredient) Drug/Non Drug Allergy do cumented on EMR Reaction Allergy Type Onset Date Status bactrim rash Non Drug Allergy Active clindaymicin rash Non Drug Allergy Active Pravastatin sore stomach Drug Allergy Active ENCOUNTERS from 1940 to 2021-04-06 Encounter Location Date Provider Diagnosis [facility] [address] [place] [address] 28 Feb, 2021 Layne Harris Essential hypertension I10 ; Heart block AV complete I44.2 ; Bradycardia R00.1 ; Mixed hyperlipidemia E78.2 ; 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 ; Iron deficiency anemia secondary to inadequate dietary iron intake D50.8 ; Esophageal reflux K21.9 ; Hypokalemia E87.6 ; Inflammatory arthritis M19.90 ; Chronic kidney disease, stage 3 N18.3 ; 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 and Long-term use of Plaquenil Z79.899 IMMUNIZATIONS Vaccine Route Administration Date Status Influenza Pharmacy Given Unknown Mar 29, 2020 Adminis tered Influenza (High Dose 65 & up) Unknown Apr 17, 2017 Ot hers Influenza 6mo & up Fluzone Unknown Feb 26, 2015 Admin istered SOCIAL HISTORY Tobacco Use: Social History Observation Description Date Details (start date - stop date) Former Smoker Sex Assigned At : Social History Observation Description Sex Assigned At Unknown Audit Question Answer Notes Total Score: 0 Interpretation: Alcohol Education Language: Question Answer Notes Languages spoken: Other Sami is her firs t language, Arabic is her second language Shinto: Question Answer Notes Shinto 99 Other No oriental orthodox beliefs that would impact health care. Sexual Hx: Question Answer Notes Had sex in the last 12 months (vaginal, oral, or anal)? Yes Have you ever had an STD? No with Men only Drug and Alcohol Question Answer Notes Total Score: 0 Interpretation: No problems reported BMI Care Goal Follow-Up Question Answer Notes Above Normal BMI Follow-Up Dietary management educatio n, guidance, and counseling Tobacco Use: Question Answer Notes Are you a: former smoker How long has it been since you last smoked? > 10 years REASON FOR REFERRAL No Information VITAL SIGNS Weight 113 lbs Feb, Height 60 in Feb, BMI 22.07 kg/m2 Feb, Heart Rate 94 /min Feb, Respiratory Rate 18 /min Feb, Temperature 97.9 degrees Fahrenheit Feb, Oximetry 100 Feb, Blood pressure systolic 178 mm Hg Feb, Blood pressure diastolic 92 mm Hg Feb, MEDICATIONS Medication SIG (Take, Route, Frequency, Duration) Notes Start Da te End Date Status Hydroxychloroquine 200 mg 1 tablet Orally at bedtime for 30 days (P laquenil) Active Omeprazole 40 MG 1 capsule Orally Once a day for 90 days Active Folic Acid 1 MG 1 tablet Orally Once a day for 30 day(s) Active Multivitamins 1 tablet Orally Once a day Active Acetaminophen 500 MG 2 tablets Orally Twice a day Active Klor-Con 10 10 MEQ 2 tablets Orally Once a day Active Magnesium Oxide 400 MG 1 capsule as needed Orally Once a day for 30 day(s) Active amLODIPine Besylate 10 MG 1 tablet Orally Once a day for 90 days Feb, Active Vitamin C 250 MG 1 tablet Orally Once a day for 30 day(s) Active Docusate Sodium 100 MG 1 caps Orally Once a day Active Januvia 50 MG 1 tablet Orally Once a day for 90 days Active B-6 100 MG 1 tablet Orally Once a day for 30 day(s) Active Methotrexate 2.5 MG as directed Orally 3 TABS WEEKLY Active Calcium 600 + D 600-400 MG-UNIT 1 tablet Orally Once a day Active Atorvastatin Calcium 10 MG TAKE 1 TABLET DAILY Orally Once a day for 90 days Active predniSONE 5 MG 1 tablet Orally bid Not-Taking PROCEDURES No Information RESULTS No Results REASON FOR VISIT 6 month HTN Lipids MEDICAL (GENERAL) HISTORY Type Description Date Medical History hypertension Medical History hyperliidemia Medical History anemia (iron deficiency) Medical History GERD Medical History osteoporosis Medical History varicose veins Surgical History varicose vein stripping 12/2012 Surgical History left chest lesion removed Surgical History pacemaker 03/2017 Goals Section No Information Health Concerns No Information MEDICAL EQUIPMENT No Information MENTAL STATUS No Information FUNCTIONAL STATUS No Information ASSESSMENTS Encounter Date Diagnosis Assessment Notes Treatment Notes Treatm ent Clinical Notes Feb, Essential hypertension (ICD-10 - I10) We ll-controlled on amlodipine, Klor-Con. No medication changes have been made Feb, Heart block AV complete (ICD-10 - I44.2) Well-controlled with pacemaker, continue follow-up with cardiology Feb, Bradycardia (ICD-10 - R00.1) Well-contro lled with pacemaker, continue follow-up with cardiology Feb, Mixed hyperlipidemia (ICD-10 - E78.2) We ll controlled on atorvastatin and fish oil, no medication changes have been made Feb, Type 2 diabetes with nephropathy (ICD-10 - E11.21) Well controlled on Januvia, no medication changes have been made Feb, Iron deficiency anemia secon az to inadequate dietary iron intake (ICD-10 - D50.8) Stable on just multivitamins now, no med ication changes have been made Feb, Esophageal reflux (ICD-10 - K21.9) Well controlled on omeprazole, no medication changes at been made Feb, Hypokalemia (ICD-10 - E87.6) Stable on c urrent dose of potassium, no medication changes at been made Feb, Inflammatory arthritis (ICD-10 - M19.90) Improved with regimen prescribed by project management advisor Feb, Chronic kidney disease, stage 3 (ICD-10 - N18.3) Stable and followed by nephrology Feb, Generalized osteoarthritis of multiple sites (IC D-10 - M15.9) Feb, Long-term use of Plaquenil (ICD-10 - Z79.899) PLAN OF TREATMENT Medication Medication Name Sig Start Date Stop Date amLODIPine Besylate 10 MG 1 tablet Orally Once a day for 90 days Feb, Next Appt Details 4 Weeks, 30 min Reason:htn, anxiety Provider Name:Layne Harris, 2020-10-2 5 10:30:00 AM, [address], , [place], [address], Follow Up:4 Weeks, 30 minaraselin, anxiety Insurance Providers Payer Name Payer Address Payer Phone Insured Name Patient Relati onship to Insured Coverage Start Date Coverage End Date MEDICARE Part A and B [address] [facility] [id number] [employer] SANCHEZ self FOR LIFE [address] [facility] [id number] Nilson Sanchez
[2021-04-19] MEDS ORDERED: ACETAMINOPHEN TAB 650MG DOSE (2X325MG) PO ONE ×2 (07:55→12:10)
[2021-04-19] MEDS ORDERED: NS 1,000 ML IV ONE (07:55)
[2021-04-19 08:38] LABS: HEMATOCRIT 39.1 % (36.0-47.0); HEMOGLOBIN 13.6 g/dl (12.0-15.5); LYMPH # 0.1 10^3/uL (1.5-5.0); MEAN CORPUSCULAR HEMOGLOBIN 33.3 pg (27.0-33.0); MEAN CORPUSCULAR HGB CONC 34.8 g/dl (32.0-36.5); MEAN CORPUSCULAR VOLUME 95.6 fl (80.0-96.0); MONO # 0.1 10^3/uL (0.0-0.8); MONO % 3.4 % (2.0-8.0); NEUTROPHILS % 92.3 % (36.0-66.0); PLATELET COUNT, AUTOMATED 105 10^3/uL (150-450); RED BLOOD COUNT 4.09 10^6/uL (4.00-5.40); WHITE BLOOD COUNT 3.2 10^3/uL (4.0-10.0)
--- NOTE | 2021-04-19 09:05 | REP ---
INDICATION: DYSPNEA/COUGH. COMPARISON: 11/21/2018. TECHNIQUE: Single portable AP view of the chest was performed. FINDINGS: There is no evidence of acute infiltrate. There are mild stable bibasilar fibrotic changes. The heart is normal in size. There is some calcification and tortuosity of the thoracic aorta. The mediastinal silhouette is unchanged. Left pacemaker is unchanged. IMPRESSION: No acute pulmonary disease.Stable chronic changes. <Electronically signed by Jagdish Escobedo > 04/19/21 0901
--- NOTE | 2021-04-19 09:19 | REPVR ---
PROCEDURE INFORMATION: Exam: CT Head Without Contrast Exam date and time: 04/19/2021 8:06 AM Age: 80 years old Clinical indication: Injury or trauma; Fall; Blunt trauma (contusions or hematomas) TECHNIQUE: Imaging protocol: Computed tomography of the head without contrast. Radiation optimization: All CT scans at this facility use at least one of these dose optimization techniques: automated exposure control; mA and/or kV adjustment per patient size (includes targeted exams where dose is matched to clinical indication); or iterative reconstruction. COMPARISON: CT Head without contrast 11/21/2018 9:37 AM FINDINGS: Brain: There are chronic bilateral basal ganglia lacunar infarcts. There is no acute intracranial hemorrhage. There is lucency in the cerebral white matter, likely microvascular disease although non-specific. Escobedo white differentiation is intact. There are no extra-axial fluid collections. No evidence of mass. There is no mass effect or midline shift. Cerebral ventricles: The ventricles and sulci are enlarged, consistent with volume loss / atrophy. No hydrocephalus. Paranasal sinuses: There is no significant mucosal thickening in paranasal sinuses. No air-fluid levels. Mastoid air cells: No significant mastoid effusion. Vasculature: There is vascular calcification. Bones/joints: No acute fracture. Soft tissues: Unremarkable as visualized. IMPRESSION: 1. No evidence of acute intracranial abnormality. No evidence of acute infarction, hemorrhage, or mass. 2. Atrophy and microvascular disease. Electronically signed by: Leyda Kulkarni On 04/19/2021 09:19:17 AM
[2021-04-19 09:20] LABS: ALBUMIN 3.6 GM/DL (3.2-5.2); ALT/SGPT 29 U/L (12-78); BILIRUBIN,DIRECT 0.2 MG/DL (0.0-0.2); BILIRUBIN,TOTAL 0.5 MG/DL (0.2-1.0); BLOOD UREA NITROGEN 17 MG/DL (7-18); CALCIUM LEVEL 8.5 MG/DL (8.8-10.2); CARBON DIOXIDE LEVEL 21 MEQ/L (21-32); CHLORIDE LEVEL 100 MEQ/L (98-107); CK-MB VALUE MASS < 1.0 NG/ML (<3.6); CPK CREATINE PHOSPHOKINASE 171 U/L (26-192); CREATININE FOR GFR 0.88 MG/DL (0.55-1.30); GLOMERULAR FILTRATION RATE > 60.0 (>39); GLUCOSE, FASTING 122 MG/DL (70-100); MB/CK RELATIVE INDEX 0.58 (< OR =4); POTASSIUM SERUM 3.5 MEQ/L (3.5-5.1); SODIUM LEVEL 133 MEQ/L (136-145); THYROID STIMULATING HORMONE 0.341 uIU/ML (0.358-3.740); THYROXINE (T4) 8.2 UG/DL (4.5-12.0); TOTAL PROTEIN 7.3 GM/DL (6.4-8.2); TROPONIN I < 0.02 NG/ML (< 0.10)
--- NOTE | 2021-04-19 09:32 | REPVR ---
PROCEDURE INFORMATION: Exam: CT Cervical Spine Without Contrast Exam date and time: 04/19/2021 8:06 AM Age: 80 years old Clinical indication: Injury or trauma; Fall; Blunt trauma TECHNIQUE: Imaging protocol: Computed tomography images of the cervical spine without contrast. Radiation optimization: All CT scans at this facility use at least one of these dose optimization techniques: automated exposure control; mA and/or kV adjustment per patient size (includes targeted exams where dose is matched to clinical indication); or iterative reconstruction. COMPARISON: 1. CT Chest with contrast 11/21/2018 9:[address] Head without contrast 11/21/2018 9:37:57 AM FINDINGS: Bones/joints: There is no evidence acute fracture. There is abnormal alignment with straightening of lordosis, grade 1 anterolisthesis C4 on C5, slight leftward listhesis C4 relative to C5 with slight wire left side of the disc space compared to right. The straightening of lordosis and anterolisthesis was present on localizing view of prior [address] Unfortunately there was not a frontal view provided and this area is not included in scanned field of view of chest CT. There is no definite prevertebral soft tissue swelling. There are degenerative changes with facet degenerative changes greatest right C4-C5. This may contribute to the malalignment described with degenerative and some arose sips change at the facets which may result in laxity. There is uncinate and facet osteophytes which causes right C3-C4, right C4-C5, left greater than right C5-C6 and C6-C7 neural foraminal narrowing. There is disc height loss greatest at C5-C6 through C7-T1 and mild at C4-C5. There is central and left paracentral disc bulging/protrusion at C5-C6. Discs/Spinal canal/Neural foramina: See "Bones/joints" finding. Lungs: Lung apices are unremarkable for acute finding. Soft tissues: See "Bones/joints" finding. IMPRESSION: Malalignment as described at C4-C5. The coronal malalignment is of undetermined age. This may relate to the prominent right-sided C4-C5 facet degenerative change with facet laxity. The anterolisthesis and straightening lordosis is unchanged from [address] No acute fracture. No evidence of prevertebral soft tissue swelling. Neurosurgical or orthopedic consultation may be helpful. Cervical spine MRI with [facility] imaging to assess for edema could also be helpful. Electronically signed by: Leyda Kulkarni On 04/19/2021 09:32:22 AM
[2021-04-19 12:00] VITALS: BP 156/71
--- NOTE | 2021-04-20 06:31 | ECGEPIP ---
[facility] - ED Test Date: 2021-04-19 Pat Name: MUSHTAQ GARIBAY Department: Room: - Gender: Female Help Desk Assistant: EMRE : [id number] Requested By: MICHAEL Neil Order Number: [id number] Reading MD: Michael Vera Measurements Intervals [place] Rate: 96 P: 64 DC: 206 QRS: -78 QRSD: 144 T: 96 QT: 384 QTc: 485 Interpretive Statements Atrial-sensed ventricular-paced rhythm previous tracing done 11-21-18 was v-paced Electronically Signed on 04-20-2021 6:31:13 EDT by Michael Vera
== END 2021-04-19 12:10 | disposition short-term general hospital (02) ==
LOC: M ED 06:50
DX: U07.1 COVID-19 (principal); M50.221 Other cervical disc displacement at C4-C5 level; N18.30 Chronic kidney disease, stage 3 unspecified; E11.9 Type 2 diabetes mellitus without complications; K21.9 Gastro-esophageal reflux disease without esophagitis; E78.5 Hyperlipidemia, unspecified; Z79.84 Long term (current) use of oral hypoglycemic drugs; Z88.1 Allergy status to other antibiotic agents; Z88.8 Allergy status to other drugs, medicaments and biological substances; Z88.2 Allergy status to sulfonamides

== ENCOUNTER → 2021-05-02 | Outpatient (REF) | payer MEDICARE, OTHER | LOC: M LAB REF 17:20 | PROVIDERS: ATTEND Internal Medicine Nephrology | DX: E83.42 Hypomagnesemia (principal) ==

== ENCOUNTER → 2021-11-05 | Outpatient (REF) | payer MEDICARE, OTHER ==
[~2021-11-05] MED LIST changes: +LOSA100T45 PO; -LOSA100T50 PO
[2021-11-05 12:48] LABS: ALBUMIN 4.1 GM/DL (3.2-5.2); ALT/SGPT 24 U/L (12-78); BILIRUBIN,TOTAL 0.6 MG/DL (0.2-1.0); BLOOD UREA NITROGEN 16 MG/DL (7-18); CALCIUM LEVEL 10.5 MG/DL (8.8-10.2); CARBON DIOXIDE LEVEL 28 MEQ/L (21-32); CHLORIDE LEVEL 103 MEQ/L (98-107); CHOLESTEROL LEVEL 175 MG/DL (<200); CHOLESTEROL RISK RATIO 2.243 (<5); CREATININE FOR GFR 0.87 MG/DL (0.55-1.30); GLOMERULAR FILTRATION RATE > 60.0 (>32); GLUCOSE, FASTING 100 MG/DL (70-100); HDL CHOLESTEROL 78 MG/DL (>40); LDL CHOLESTEROL 82 MG/DL (<100); NON-HDL-C 97 MG/DL; POTASSIUM SERUM 3.8 MEQ/L (3.5-5.1); SODIUM LEVEL 138 MEQ/L (136-145); TOTAL PROTEIN 7.5 GM/DL (6.4-8.2); TRIGLYCERIDES LEVEL 76 MG/DL (<150)
[2021-11-05 13:27] LABS: HEMOGLOBIN A1c 5.5 %
== END ==
LOC: M SFHCADAM 08:46
PROVIDERS: ATTEND Physician Assistant
DX: I10 Essential (primary) hypertension (principal); E78.2 Mixed hyperlipidemia; E11.21 Type 2 diabetes mellitus with diabetic nephropathy

== ENCOUNTER → 2022-01-08 | Outpatient (REF) | payer MEDICARE, OTHER ==
[2022-01-08 16:25] LABS: BASO % 1.1 % (0.0-1.0); EOS # 0.1 10^3/uL (0.0-0.5); EOS % 2.5 % (0.0-3.0); HEMOGLOBIN 13.6 g/dl (12.0-15.5); LYMPH % 26.9 % (24.0-44.0); MEAN CORPUSCULAR HEMOGLOBIN 34.3 pg (27.0-33.0); MEAN CORPUSCULAR VOLUME 100.8 fl (80.0-96.0); MONO # 0.6 10^3/uL (0.0-0.8); MONO % 15.7 % (2.0-8.0); NEUTROPHILS % 53.5 % (36.0-66.0); PLATELET COUNT, AUTOMATED 281 10^3/uL (150-450); RED BLOOD COUNT 3.97 10^6/uL (4.00-5.40); WHITE BLOOD COUNT 3.6 10^3/uL (4.0-10.0)
[2022-01-08 16:34] LABS: APPEARANCE, URINE CLEAR (CLEAR); BACTERIA, URINE AUTO NEGATIVE (NEGATIVE); BILIRUBIN, URINE AUTO NEGATIVE (NEGATIVE); BLOOD, URINE BLOOD NEGATIVE (NEGATIVE); COLOR, URINE YELLOW (YELLOW); GLUCOSE, URINE (UA) AUTO NEGATIVE (NEGATIVE); KETONE, URINE AUTO NEGATIVE (NEGATIVE); LEUKOCYTE ESTERASE, URINE AUTO NEGATIVE (NEGATIVE); MUCUS, URINE SMALL (NEGATIVE); NITRITE, URINE AUTO NEGATIVE (NEGATIVE); PROTEIN, URINE AUTO NEGATIVE (NEGATIVE); RBC, URINE AUTO 2 /HPF (0-3); SPECIFIC GRAVITY URINE AUTO 1.012 (1.002-1.035); SQUAMOUS EPITHELIAL CELL UR AU 0 /HPF (0-6); UROBILINOGEN, URINE AUTO 0.2 mg/dL (0.0-2.0); WBC, URINE AUTO 1 /HPF (0-3)
[2022-01-08 16:46] LABS: ALBUMIN 4.3 GM/DL (3.2-5.2); ALT/SGPT 23 U/L (12-78); BILIRUBIN,TOTAL 0.6 MG/DL (0.2-1.0); BLOOD UREA NITROGEN 20 MG/DL (7-18); CALCIUM LEVEL 10.2 MG/DL (8.8-10.2); CARBON DIOXIDE LEVEL 31 MEQ/L (21-32); CHLORIDE LEVEL 100 MEQ/L (98-107); CREATININE FOR GFR 0.93 MG/DL (0.55-1.30); GLOMERULAR FILTRATION RATE > 60.0 (>32); GLUCOSE, FASTING 103 MG/DL (70-100); POTASSIUM SERUM 4.2 MEQ/L (3.5-5.1); SODIUM LEVEL 134 MEQ/L (136-145); TOTAL PROTEIN 7.8 GM/DL (6.4-8.2)
== END ==
LOC: M SFHCADAM 14:18
PROVIDERS: ATTEND Physician Assistant
DX: R35.0 Frequency of micturition (principal); M25.561 Pain in right knee; M19.90 Unspecified osteoarthritis, unspecified site

== ENCOUNTER → 2022-01-08 | Outpatient (CLI) | payer MEDICARE, OTHER | LOC: M ADAMS 14:25 | PROVIDERS: ATTEND Physician Assistant | DX: M25.561 Pain in right knee (principal) ==

== ENCOUNTER → 2022-03-13 | Outpatient (CLI) | payer MEDICARE, OTHER | LOC: M SOG 08:03 | PROVIDERS: ATTEND Orthopaedic Surgery Adult Reconstructive Orthopaedic Surgery | DX: M25.561 Pain in right knee (principal); M17.0 Bilateral primary osteoarthritis of knee ==

== ENCOUNTER → 2022-06-03 | Outpatient (REF) | payer MEDICARE, OTHER ==
[2022-06-03 18:42] LABS: ALBUMIN 4.1 G/DL (3.2-5.2); ALKALINE PHOSPHATASE 56 U/L (46-116); ALT/SGPT 18 U/L (7.0-40); AST/SGOT 24 U/L (<34); BILIRUBIN,TOTAL 0.4 MG/DL (0.3-1.2); BLOOD UREA NITROGEN 15 MG/DL (9-23); CALCIUM LEVEL 9.5 MG/DL (8.3-10.6); CARBON DIOXIDE LEVEL 27 MMOL/L (20-31); CHLORIDE LEVEL 101 MMOL/L (98-107); CREATININE FOR GFR 0.72 MG/DL (0.55-1.30); GLOMERULAR FILTRATION RATE > 60.0 (>32); GLUCOSE, FASTING 90 MG/DL (74-106); POTASSIUM SERUM 4.3 MMOL/L (3.5-5.1); SODIUM LEVEL 136 MMOL/L (136-145); TOTAL PROTEIN 7.4 G/DL (5.7-8.2)
[2022-06-03 19:29] LABS: HEMOGLOBIN A1c 5.3 % (4.0-6.0)
== END ==
LOC: M SFHCADAM 17:29
PROVIDERS: ATTEND Family Medicine
DX: E11.21 Type 2 diabetes mellitus with diabetic nephropathy (principal)

== ENCOUNTER 2022-09-02 14:29 | Inpatient (IN) | payer MEDICARE, OTHER ==
[~2022-09-02] VITALS: Ht 157.5 cm; Wt 50.0 kg
[2022-09-02] MEDS ORDERED: HYDR200T3 PO (15:38)
[2022-09-02] MEDS ORDERED: SITA50TAB PO (15:38)
[2022-09-02] MEDS ORDERED: METH2.5T48 PO (15:38)
[2022-09-02] MEDS ORDERED: FOLI1TAB11 PO (15:38)
[2022-09-02 18:48] LABS: BASO % 0.4 % (0.0-1.0); EOS # 0.1 10^3/uL (0.0-0.5); EOS % 1.4 % (0.0-3.0); HEMATOCRIT 33.6 % (36.0-47.0); HEMOGLOBIN 11.4 g/dl (12.0-15.5); LYMPH # 0.9 10^3/uL (1.5-5.0); LYMPH % 15.5 % (24.0-44.0); MEAN CORPUSCULAR HEMOGLOBIN 34.9 pg (27.0-33.0); MEAN CORPUSCULAR HGB CONC 33.9 g/dl (32.0-36.5); MEAN CORPUSCULAR VOLUME 102.8 fl (80.0-96.0); MONO # 0.8 10^3/uL (0.0-0.8); MONO % 14.4 % (2.0-8.0); NEUTROPHILS # 3.8 10^3/uL (1.5-8.5); NEUTROPHILS % 67.9 % (36.0-66.0); PLATELET COUNT, AUTOMATED 242 10^3/uL (150-450); RED BLOOD COUNT 3.27 10^6/uL (4.00-5.40); WHITE BLOOD COUNT 5.5 10^3/uL (4.0-10.0)
[2022-09-02 19:16] LABS: ALBUMIN 3.9 G/DL (3.2-5.2); ALKALINE PHOSPHATASE 55 U/L (46-116); ALT/SGPT 17 U/L (7.0-40); AST/SGOT 27 U/L (<34); BILIRUBIN,TOTAL 0.6 MG/DL (0.3-1.2); BLOOD UREA NITROGEN 16 MG/DL (9-23); CALCIUM LEVEL 8.9 MG/DL (8.3-10.6); CARBON DIOXIDE LEVEL 27 MMOL/L (20-31); CHLORIDE LEVEL 104 MMOL/L (98-107); CREATININE FOR GFR 0.76 MG/DL (0.55-1.30); GLOMERULAR FILTRATION RATE > 60.0 (>32); GLUCOSE, FASTING 90 MG/DL (74-106); POTASSIUM SERUM 3.7 MMOL/L (3.5-5.1); SODIUM LEVEL 139 MMOL/L (136-145); TOTAL PROTEIN 6.8 G/DL (5.7-8.2)
[2022-09-02 19:21] LABS: RSV AMPLIFICATION NEGATIVE (NEGATIVE)
[2022-09-02] MEDS ORDERED: KETOROLAC 30 MG/ML 1ML VIAL IV ONE (20:50)
[2022-09-02] MEDS ORDERED: C-251TAB PO (20:59)
[2022-09-02] MEDS ORDERED: MAGN400T2 PO (20:59)
[2022-09-02] MEDS ORDERED: VITA100T14 PO (20:59)
[2022-09-02] MEDS: DOCUSATE SODIUM 100MG CAPSULE PO SCH (21:00)
[2022-09-02] MEDS: INSULIN LISPRO (NovoLOG) PER UNIT SC SCH (21:00)
[2022-09-02] MEDS ORDERED: HOME MED LIST COMPLETE! XX SCH (21:00)
[2022-09-02 21:20] VITALS: BP 134/69
[2022-09-02] MEDS ORDERED: MOM 30ML SUSPENSION UDC PO PRN (21:30)
[2022-09-02] MEDS ORDERED: ACETAMINOPHEN TAB 650MG DOSE (2X325MG) PO PRN (21:30)
[2022-09-02] MEDS ORDERED: DEXTROSE 50% 50ML SYRINGE IV PRN (21:30)
[2022-09-02] MEDS ORDERED: GLUCAGON INJ 1MG VIAL SC PRN (21:30)
[2022-09-02] MEDS ORDERED: GLUCOSE 4GM CHEW TABLET PO PRN (21:30)
[2022-09-02] MEDS: NS 1,000 ML IV SCH (22:55)
[2022-09-03] MEDS: HEPARIN SOD (PORCINE) 5000UNITS/ML 1ML VIAL/SYRINGE SC SCH ×3 (05:17→20:24)
[2022-09-03 05:48] VITALS: BP 152/73
[2022-09-03 05:59] LABS: HEMATOCRIT 33.7 % (36.0-47.0); HEMOGLOBIN 11.2 g/dl (12.0-15.5); MEAN CORPUSCULAR HGB CONC 33.2 g/dl (32.0-36.5); MEAN CORPUSCULAR VOLUME 102.4 fl (80.0-96.0); PLATELET COUNT, AUTOMATED 245 10^3/uL (150-450); RED BLOOD COUNT 3.29 10^6/uL (4.00-5.40); WHITE BLOOD COUNT 3.3 10^3/uL (4.0-10.0)
[2022-09-03 06:00] VITALS: BP 152/73
[2022-09-03 06:23] LABS: BLOOD UREA NITROGEN 17 MG/DL (9-23); CALCIUM LEVEL 8.4 MG/DL (8.3-10.6); CARBON DIOXIDE LEVEL 27 MMOL/L (20-31); CHLORIDE LEVEL 106 MMOL/L (98-107); CREATININE FOR GFR 0.69 MG/DL (0.55-1.30); GLOMERULAR FILTRATION RATE > 60.0 (>32); GLUCOSE, FASTING 103 MG/DL (74-106); POTASSIUM SERUM 3.7 MMOL/L (3.5-5.1); SODIUM LEVEL 140 MMOL/L (136-145)
[2022-09-03] MEDS: INSULIN LISPRO (NovoLOG) PER UNIT SC SCH ×5 (07:30→19:57)
[2022-09-03] MEDS: POTASSIUM CHLORIDE 10MEQ SR TABLET PO SCH (08:33)
[2022-09-03] MEDS: MAGNESIUM OXIDE 400MG TAB (MAG-OX) PO SCH (08:33)
[2022-09-03] MEDS: DOCUSATE SODIUM 100MG CAPSULE PO SCH ×2 (08:33→19:58)
[2022-09-03] MEDS: OMEPRAZOLE 20MG CAP PO SCH (08:34)
[2022-09-03] MEDS: FOLIC ACID 1MG TAB PO SCH (08:34)
[2022-09-03] MEDS: MULTIVITAMINS/MINERALS THERAP 1 TAB PO SCH (08:34)
[2022-09-03] MEDS: amLODIPine 5 MG TAB PO SCH (08:37)
[2022-09-03] MEDS: HYDROXYCHLOROQUINE 200 MG TAB PO SCH (08:37)
[2022-09-03] MEDS: ASCORBIC ACID 250 MG TAB PO SCH ×2 (08:37→20:23)
[2022-09-03] MEDS ORDERED: PREVNAR-20 VACCINE 0.5ML SYRINGE IM.IMMUN ONE (09:00)
[2022-09-03] MEDS: NS 1,000 ML IV SCH (10:40)
[2022-09-03 14:00] VITALS: BP 131/74
[2022-09-03] MEDS ORDERED: CALCIUM CARBONATE 500 MG CHEW U/D PO PRN (20:45)
[2022-09-03] MEDS ORDERED: ATORVASTATIN 10 MG TAB PO SCH (21:00)
[2022-09-03 22:00] VITALS: BP 121/53
[2022-09-04] MEDS: HEPARIN SOD (PORCINE) 5000UNITS/ML 1ML VIAL/SYRINGE SC SCH (05:53)
[2022-09-04 06:20] LABS: HEMATOCRIT 34.2 % (36.0-47.0); HEMOGLOBIN 11.7 g/dl (12.0-15.5); MEAN CORPUSCULAR HEMOGLOBIN 35.1 pg (27.0-33.0); MEAN CORPUSCULAR HGB CONC 34.2 g/dl (32.0-36.5); MEAN CORPUSCULAR VOLUME 102.7 fl (80.0-96.0); PLATELET COUNT, AUTOMATED 242 10^3/uL (150-450); RED BLOOD COUNT 3.33 10^6/uL (4.00-5.40); WHITE BLOOD COUNT 3.3 10^3/uL (4.0-10.0)
[2022-09-04 06:38] VITALS: BP 142/68
[2022-09-04 06:54] LABS: ALBUMIN 3.4 G/DL (3.2-5.2); ALKALINE PHOSPHATASE 59 U/L (46-116); ALT/SGPT 13 U/L (7.0-40); AST/SGOT 24 U/L (<34); BILIRUBIN,TOTAL 0.8 MG/DL (0.3-1.2); BLOOD UREA NITROGEN 11 MG/DL (9-23); CALCIUM LEVEL 8.8 MG/DL (8.3-10.6); CARBON DIOXIDE LEVEL 27 MMOL/L (20-31); CHLORIDE LEVEL 106 MMOL/L (98-107); CREATININE FOR GFR 0.69 MG/DL (0.55-1.30); GLOMERULAR FILTRATION RATE > 60.0 (>32); GLUCOSE, FASTING 113 MG/DL (74-106); POTASSIUM SERUM 3.8 MMOL/L (3.5-5.1); SODIUM LEVEL 139 MMOL/L (136-145); TOTAL PROTEIN 6.5 G/DL (5.7-8.2)
[2022-09-04] MEDS: INSULIN LISPRO (NovoLOG) PER UNIT SC SCH ×2 (07:30→12:00)
[2022-09-04] MEDS: DOCUSATE SODIUM 100MG CAPSULE PO SCH (09:50)
[2022-09-04] MEDS: OMEPRAZOLE 20MG CAP PO SCH (09:51)
[2022-09-04] MEDS: HYDROXYCHLOROQUINE 200 MG TAB PO SCH (09:52)
[2022-09-04] MEDS: FOLIC ACID 1MG TAB PO SCH (09:52)
[2022-09-04] MEDS: POTASSIUM CHLORIDE 10MEQ SR TABLET PO SCH (09:53)
[2022-09-04] MEDS: MULTIVITAMINS/MINERALS THERAP 1 TAB PO SCH (09:53)
[2022-09-04] MEDS: MAGNESIUM OXIDE 400MG TAB (MAG-OX) PO SCH (09:54)
[2022-09-04] MEDS: ASCORBIC ACID 250 MG TAB PO SCH (09:54)
[2022-09-04 09:55] VITALS: BP 142/68
[2022-09-04] MEDS: amLODIPine 5 MG TAB PO SCH (09:55)
[2022-09-04] MEDS ORDERED: ACET1TAB55 PO (12:48)
[2022-09-04 14:00] VITALS: BP 137/56
[2022-09-07] MEDS ORDERED: METHOTREXATE 2.5MG TAB PO SCH (09:00)
== END 2022-09-04 14:10 | DRG 563 ==
LOC: M ED 14:29 → M ED INP 21:28 → M MS5PR 22:25
PROVIDERS: ADMIT Family Medicine; ATTEND Family Medicine
PROC: 2W3RX3Z Immobilization of Left Lower Leg using Brace (ICD-10-PCS; principal; 2022-09-03)
PROC: 2W3QX3Z Immobilization of Right Lower Leg using Brace (ICD-10-PCS; 2022-09-03)
DX: S82.035A Nondisplaced transverse fracture of left patella, initial encounter for closed fracture (principal); S82.091A Other fracture of right patella, initial encounter for closed fracture; M06.9 Rheumatoid arthritis, unspecified; K21.9 Gastro-esophageal reflux disease without esophagitis; E11.22 Type 2 diabetes mellitus with diabetic chronic kidney disease; N18.9 Chronic kidney disease, unspecified; I12.9 Hypertensive chronic kidney disease with stage 1 through stage 4 chronic kidney disease, or unspecified chronic kidney disease; E78.5 Hyperlipidemia, unspecified; Z95.0 Presence of cardiac pacemaker; Z87.891 Personal history of nicotine dependence; W01.0XXA Fall on same level from slipping, tripping and stumbling without subsequent striking against object, initial encounter; Y92.9 Unspecified place or not applicable; Z79.899 Other long term (current) drug therapy; Z88.1 Allergy status to other antibiotic agents; Z88.2 Allergy status to sulfonamides; Z88.8 Allergy status to other drugs, medicaments and biological substances; Z20.822 Contact with and (suspected) exposure to COVID-19

== ENCOUNTER 2022-09-04 10:05 | Inpatient (IN) | payer MEDICARE, OTHER ==
[~2022-09-04] VITALS: Ht 157.5 cm; Wt 49.4 kg
[~2022-09-04 10:05] MED LIST changes: +C-251TAB PO; +FOLI1TAB11 PO; +HYDR200T3 PO; +MAGN400T2 PO; +METH2.5T48 PO; +VITA100T14 PO
[2022-09-04] MEDS ORDERED: ACET1TAB55 PO (12:48)
[2022-09-04] MEDS ORDERED: GLUCAGON INJ 1MG VIAL SC PRN (13:50)
[2022-09-04] MEDS ORDERED: BISACODYL 10MG SUPP PR PRN (13:50)
[2022-09-04] MEDS ORDERED: DEXTROSE 50% 50ML SYRINGE IV PRN (13:50)
[2022-09-04] MEDS ORDERED: GLUCOSE 4GM CHEW TABLET PO PRN (13:50)
[2022-09-04 14:00] VITALS: BP 132/74
[2022-09-04] MEDS: HEPARIN SOD (PORCINE) 5000UNITS/ML 1ML VIAL/SYRINGE SC SCH ×2 (15:57→20:41)
[2022-09-04] MEDS: ACETAMINOPHEN 500 MG TAB PO SCH ×2 (16:00→20:38)
[2022-09-04] MEDS: REMEDY PHYTOPLEX Z-GUARD PASTE 113GM TUBE (FROM STOREROOM PRODUCT) TOP SCH ×2 (16:00→20:41)
[2022-09-04] MEDS: INSULIN LISPRO (NovoLOG) PER UNIT SC SCH ×2 (17:04→20:26)
[2022-09-04 20:00] VITALS: BP 140/62
[2022-09-04] MEDS: DOCUSATE SODIUM 100MG CAPSULE PO SCH (20:37)
[2022-09-04] MEDS: ATORVASTATIN 10 MG TAB PO SCH (20:37)
[2022-09-04] MEDS: SENNA 8.6 MG TAB (SENOKOT) PO SCH (20:38)
[2022-09-04] MEDS: ASCORBIC ACID 250 MG TAB PO SCH (20:38)
[2022-09-05 06:00] VITALS: BP 150/78
[2022-09-05] MEDS: HEPARIN SOD (PORCINE) 5000UNITS/ML 1ML VIAL/SYRINGE SC SCH ×3 (06:15→21:18)
[2022-09-05] MEDS: INSULIN LISPRO (NovoLOG) PER UNIT SC SCH ×4 (07:30→20:53)
[2022-09-05 08:10] LABS: BASO % 0.8 % (0.0-1.0); EOS # 0.2 10^3/uL (0.0-0.5); EOS % 6.5 % (0.0-3.0); HEMATOCRIT 33.4 % (36.0-47.0); HEMOGLOBIN 11.5 g/dl (12.0-15.5); LYMPH # 0.7 10^3/uL (1.5-5.0); LYMPH % 26.3 % (24.0-44.0); MEAN CORPUSCULAR HEMOGLOBIN 35.2 pg (27.0-33.0); MEAN CORPUSCULAR HGB CONC 34.4 g/dl (32.0-36.5); MEAN CORPUSCULAR VOLUME 102.1 fl (80.0-96.0); MONO # 0.4 10^3/uL (0.0-0.8); MONO % 14.1 % (2.0-8.0); NEUTROPHILS # 1.4 10^3/uL (1.5-8.5); NEUTROPHILS % 51.9 % (36.0-66.0); PLATELET COUNT, AUTOMATED 257 10^3/uL (150-450); RED BLOOD COUNT 3.27 10^6/uL (4.00-5.40); WHITE BLOOD COUNT 2.6 10^3/uL (4.0-10.0)
[2022-09-05 08:43] LABS: ALBUMIN 3.4 G/DL (3.2-5.2); ALKALINE PHOSPHATASE 56 U/L (46-116); ALT/SGPT 12 U/L (7.0-40); AST/SGOT 22 U/L (<34); BILIRUBIN,TOTAL 0.5 MG/DL (0.3-1.2); BLOOD UREA NITROGEN 13 MG/DL (9-23); CALCIUM LEVEL 8.5 MG/DL (8.3-10.6); CARBON DIOXIDE LEVEL 27 MMOL/L (20-31); CHLORIDE LEVEL 107 MMOL/L (98-107); CREATININE FOR GFR 0.66 MG/DL (0.55-1.30); GLOMERULAR FILTRATION RATE > 60.0 (>32); GLUCOSE, FASTING 96 MG/DL (74-106); POTASSIUM SERUM 4.1 MMOL/L (3.5-5.1); SODIUM LEVEL 139 MMOL/L (136-145); TOTAL PROTEIN 6.4 G/DL (5.7-8.2)
[2022-09-05] MEDS: REMEDY PHYTOPLEX Z-GUARD PASTE 113GM TUBE (FROM STOREROOM PRODUCT) TOP SCH ×3 (09:00→20:53)
[2022-09-05] MEDS: POTASSIUM CHLORIDE 10MEQ SR TABLET PO SCH (09:43)
[2022-09-05] MEDS: HYDROXYCHLOROQUINE 200 MG TAB PO SCH (09:43)
[2022-09-05] MEDS: DOCUSATE SODIUM 100MG CAPSULE PO SCH ×2 (09:43→20:54)
[2022-09-05] MEDS: ACETAMINOPHEN 500 MG TAB PO SCH ×3 (09:44→20:54)
[2022-09-05] MEDS: ASCORBIC ACID 250 MG TAB PO SCH ×2 (09:44→20:54)
[2022-09-05] MEDS: FOLIC ACID 1MG TAB PO SCH (09:45)
[2022-09-05] MEDS: OMEPRAZOLE 20MG CAP PO SCH (09:45)
[2022-09-05] MEDS: MAGNESIUM OXIDE 400MG TAB (MAG-OX) PO SCH (09:45)
[2022-09-05] MEDS: MULTIVITAMINS/MINERALS THERAP 1 TAB PO SCH (09:45)
[2022-09-05] MEDS: amLODIPine 5 MG TAB PO SCH (10:00)
[2022-09-05] MEDS ORDERED: DICLOFENAC EPOLAMINE 1.3% PATCH TOP SCH (13:00)
[2022-09-05 14:00] VITALS: BP 134/65
[2022-09-05 20:00] VITALS: BP 140/62
[2022-09-05] MEDS: ATORVASTATIN 10 MG TAB PO SCH (20:54)
[2022-09-05] MEDS: SENNA 8.6 MG TAB (SENOKOT) PO SCH (20:54)
[2022-09-05] MEDS: DICLOFENAC EPOLAMINE 1.3% PATCH TOP SCH (20:55)
[2022-09-06 06:00] VITALS: BP 120/70
[2022-09-06] MEDS: HEPARIN SOD (PORCINE) 5000UNITS/ML 1ML VIAL/SYRINGE SC SCH ×3 (06:00→20:14)
[2022-09-06] MEDS: INSULIN LISPRO (NovoLOG) PER UNIT SC SCH ×4 (07:30→20:15)
[2022-09-06] MEDS: DOCUSATE SODIUM 100MG CAPSULE PO SCH ×2 (09:00→20:14)
[2022-09-06] MEDS: CALCIUM CARBONATE 500 MG CHEW U/D PO PRN (10:20)
[2022-09-06] MEDS: DICLOFENAC EPOLAMINE 1.3% PATCH TOP SCH ×2 (10:21→20:14)
[2022-09-06] MEDS: ACETAMINOPHEN 500 MG TAB PO SCH ×3 (10:21→20:14)
[2022-09-06] MEDS: ASCORBIC ACID 250 MG TAB PO SCH ×2 (10:22→20:14)
[2022-09-06] MEDS: MULTIVITAMINS/MINERALS THERAP 1 TAB PO SCH (10:22)
[2022-09-06] MEDS: MAGNESIUM OXIDE 400MG TAB (MAG-OX) PO SCH (10:22)
[2022-09-06] MEDS: FOLIC ACID 1MG TAB PO SCH (10:22)
[2022-09-06] MEDS: POTASSIUM CHLORIDE 10MEQ SR TABLET PO SCH (10:23)
[2022-09-06] MEDS: METHOTREXATE 2.5MG TAB PO SCH (10:26)
[2022-09-06] MEDS: OMEPRAZOLE 20MG CAP PO SCH (10:27)
[2022-09-06] MEDS: amLODIPine 5 MG TAB PO SCH (10:28)
[2022-09-06] MEDS: REMEDY PHYTOPLEX Z-GUARD PASTE 113GM TUBE (FROM STOREROOM PRODUCT) TOP SCH ×3 (10:30→20:15)
[2022-09-06] MEDS: HYDROXYCHLOROQUINE 200 MG TAB PO SCH (10:34)
[2022-09-06 14:00] VITALS: BP 132/60
[2022-09-06 20:00] VITALS: BP 143/63
[2022-09-06] MEDS: SENNA 8.6 MG TAB (SENOKOT) PO SCH (20:14)
[2022-09-06] MEDS: ATORVASTATIN 10 MG TAB PO SCH (20:14)
[2022-09-07] MEDS: ACETAMINOPHEN 500 MG TAB PO SCH ×3 (05:06→20:35)
[2022-09-07] MEDS: HEPARIN SOD (PORCINE) 5000UNITS/ML 1ML VIAL/SYRINGE SC SCH ×3 (05:06→20:34)
[2022-09-07 06:00] VITALS: BP 137/63
[2022-09-07] MEDS: DICLOFENAC EPOLAMINE 1.3% PATCH TOP SCH ×2 (08:02→20:32)
[2022-09-07] MEDS: OMEPRAZOLE 20MG CAP PO SCH (08:03)
[2022-09-07] MEDS: MAGNESIUM OXIDE 400MG TAB (MAG-OX) PO SCH (08:03)
[2022-09-07] MEDS: INSULIN LISPRO (NovoLOG) PER UNIT SC SCH ×4 (08:03→20:32)
[2022-09-07] MEDS: FOLIC ACID 1MG TAB PO SCH (08:03)
[2022-09-07] MEDS: HYDROXYCHLOROQUINE 200 MG TAB PO SCH (08:04)
[2022-09-07] MEDS: MULTIVITAMINS/MINERALS THERAP 1 TAB PO SCH (08:05)
[2022-09-07] MEDS: DOCUSATE SODIUM 100MG CAPSULE PO SCH ×2 (08:05→20:31)
[2022-09-07] MEDS: ASCORBIC ACID 250 MG TAB PO SCH ×2 (08:05→20:31)
[2022-09-07] MEDS: amLODIPine 5 MG TAB PO SCH (08:05)
[2022-09-07] MEDS: POTASSIUM CHLORIDE 10MEQ SR TABLET PO SCH (08:05)
[2022-09-07] MEDS: REMEDY PHYTOPLEX Z-GUARD PASTE 113GM TUBE (FROM STOREROOM PRODUCT) TOP SCH ×3 (08:07→20:33)
[2022-09-07 14:00] VITALS: BP 121/59
[2022-09-07 20:00] VITALS: BP 138/65
[2022-09-07] MEDS: ATORVASTATIN 10 MG TAB PO SCH (20:31)
[2022-09-07] MEDS: SENNA 8.6 MG TAB (SENOKOT) PO SCH (20:31)
[2022-09-08] MEDS: HEPARIN SOD (PORCINE) 5000UNITS/ML 1ML VIAL/SYRINGE SC SCH ×3 (05:40→20:50)
[2022-09-08 06:00] VITALS: BP 156/70
[2022-09-08 06:05] LABS: BASO % 1.2 % (0.0-1.0); EOS # 0.2 10^3/uL (0.0-0.5); EOS % 7.3 % (0.0-3.0); HEMATOCRIT 35.2 % (36.0-47.0); HEMOGLOBIN 11.8 g/dl (12.0-15.5); LYMPH # 0.8 10^3/uL (1.5-5.0); LYMPH % 33.2 % (24.0-44.0); MEAN CORPUSCULAR HEMOGLOBIN 34.4 pg (27.0-33.0); MEAN CORPUSCULAR HGB CONC 33.5 g/dl (32.0-36.5); MEAN CORPUSCULAR VOLUME 102.6 fl (80.0-96.0); MONO # 0.5 10^3/uL (0.0-0.8); MONO % 19.8 % (2.0-8.0); NEUTROPHILS % 38.5 % (36.0-66.0); PLATELET COUNT, AUTOMATED 272 10^3/uL (150-450); RED BLOOD COUNT 3.43 10^6/uL (4.00-5.40); WHITE BLOOD COUNT 2.5 10^3/uL (4.0-10.0)
[2022-09-08 06:34] LABS: BLOOD UREA NITROGEN 16 MG/DL (9-23); CALCIUM LEVEL 9.3 MG/DL (8.3-10.6); CARBON DIOXIDE LEVEL 25 MMOL/L (20-31); CHLORIDE LEVEL 102 MMOL/L (98-107); CREATININE FOR GFR 0.67 MG/DL (0.55-1.30); GLOMERULAR FILTRATION RATE > 60.0 (>32); GLUCOSE, FASTING 96 MG/DL (74-106); POTASSIUM SERUM 4.3 MMOL/L (3.5-5.1); SODIUM LEVEL 136 MMOL/L (136-145)
[2022-09-08] MEDS: INSULIN LISPRO (NovoLOG) PER UNIT SC SCH ×4 (07:30→20:50)
[2022-09-08] MEDS: ASCORBIC ACID 250 MG TAB PO SCH ×2 (08:39→20:49)
[2022-09-08] MEDS: OMEPRAZOLE 20MG CAP PO SCH (08:39)
[2022-09-08] MEDS: POTASSIUM CHLORIDE 10MEQ SR TABLET PO SCH (08:41)
[2022-09-08] MEDS: HYDROXYCHLOROQUINE 200 MG TAB PO SCH (08:42)
[2022-09-08] MEDS: MAGNESIUM OXIDE 400MG TAB (MAG-OX) PO SCH (08:42)
[2022-09-08] MEDS: MULTIVITAMINS/MINERALS THERAP 1 TAB PO SCH (08:42)
[2022-09-08] MEDS: amLODIPine 5 MG TAB PO SCH (08:42)
[2022-09-08] MEDS: ACETAMINOPHEN 500 MG TAB PO SCH ×3 (08:42→20:49)
[2022-09-08] MEDS: DOCUSATE SODIUM 100MG CAPSULE PO SCH ×2 (08:43→20:49)
[2022-09-08] MEDS: REMEDY PHYTOPLEX Z-GUARD PASTE 113GM TUBE (FROM STOREROOM PRODUCT) TOP SCH ×3 (08:43→20:51)
[2022-09-08] MEDS: FOLIC ACID 1MG TAB PO SCH (08:43)
[2022-09-08] MEDS: DICLOFENAC EPOLAMINE 1.3% PATCH TOP SCH ×2 (08:47→20:50)
[2022-09-08 14:00] VITALS: BP 103/52
[2022-09-08] MEDS: CALCIUM CARBONATE 500 MG CHEW U/D PO PRN (14:22)
[2022-09-08 20:00] VITALS: BP 132/63
[2022-09-08] MEDS: SENNA 8.6 MG TAB (SENOKOT) PO SCH (20:49)
[2022-09-08] MEDS: ATORVASTATIN 10 MG TAB PO SCH (20:49)
[2022-09-09] MEDS: HEPARIN SOD (PORCINE) 5000UNITS/ML 1ML VIAL/SYRINGE SC SCH ×3 (05:58→22:01)
[2022-09-09 06:00] VITALS: BP 151/70
[2022-09-09] MEDS: DOCUSATE SODIUM 100MG CAPSULE PO SCH ×2 (09:10→20:40)
[2022-09-09] MEDS: MAGNESIUM OXIDE 400MG TAB (MAG-OX) PO SCH (09:10)
[2022-09-09] MEDS: OMEPRAZOLE 20MG CAP PO SCH (09:10)
[2022-09-09] MEDS: POTASSIUM CHLORIDE 10MEQ SR TABLET PO SCH (09:10)
[2022-09-09] MEDS: ASCORBIC ACID 250 MG TAB PO SCH ×2 (09:11→20:39)
[2022-09-09] MEDS: FOLIC ACID 1MG TAB PO SCH (09:11)
[2022-09-09] MEDS: INSULIN LISPRO (NovoLOG) PER UNIT SC SCH ×4 (09:11→20:31)
[2022-09-09] MEDS: MULTIVITAMINS/MINERALS THERAP 1 TAB PO SCH (09:11)
[2022-09-09] MEDS: HYDROXYCHLOROQUINE 200 MG TAB PO SCH (09:11)
[2022-09-09] MEDS: DICLOFENAC EPOLAMINE 1.3% PATCH TOP SCH ×2 (09:12→20:39)
[2022-09-09] MEDS: ACETAMINOPHEN 500 MG TAB PO SCH ×3 (09:13→20:40)
[2022-09-09] MEDS: REMEDY PHYTOPLEX Z-GUARD PASTE 113GM TUBE (FROM STOREROOM PRODUCT) TOP SCH ×3 (09:16→21:00)
[2022-09-09] MEDS: amLODIPine 5 MG TAB PO SCH (09:16)
[2022-09-09 14:00] VITALS: BP 116/56
[2022-09-09 20:00] VITALS: BP 123/57
[2022-09-09] MEDS: ATORVASTATIN 10 MG TAB PO SCH (20:39)
[2022-09-09] MEDS: SENNA 8.6 MG TAB (SENOKOT) PO SCH (20:40)
[2022-09-09] MEDS ORDERED: SIMETHICONE 80MG CHEW TAB PO PRN (21:15)
[2022-09-10] MEDS: HEPARIN SOD (PORCINE) 5000UNITS/ML 1ML VIAL/SYRINGE SC SCH ×3 (05:28→20:56)
[2022-09-10 06:00] VITALS: BP 136/67
[2022-09-10] MEDS: INSULIN LISPRO (NovoLOG) PER UNIT SC SCH ×4 (07:58→20:57)
[2022-09-10] MEDS: DICLOFENAC EPOLAMINE 1.3% PATCH TOP SCH ×2 (07:59→20:57)
[2022-09-10] MEDS: POTASSIUM CHLORIDE 10MEQ SR TABLET PO SCH (07:59)
[2022-09-10] MEDS: MAGNESIUM OXIDE 400MG TAB (MAG-OX) PO SCH (08:00)
[2022-09-10] MEDS: OMEPRAZOLE 20MG CAP PO SCH (08:00)
[2022-09-10] MEDS: ACETAMINOPHEN 500 MG TAB PO SCH ×3 (08:00→20:56)
[2022-09-10] MEDS: HYDROXYCHLOROQUINE 200 MG TAB PO SCH (08:01)
[2022-09-10] MEDS: FOLIC ACID 1MG TAB PO SCH (08:01)
[2022-09-10] MEDS: MULTIVITAMINS/MINERALS THERAP 1 TAB PO SCH (08:01)
[2022-09-10] MEDS: ASCORBIC ACID 250 MG TAB PO SCH ×2 (08:01→20:56)
[2022-09-10] MEDS: amLODIPine 5 MG TAB PO SCH (08:01)
[2022-09-10] MEDS: DOCUSATE SODIUM 100MG CAPSULE PO SCH ×2 (08:02→20:56)
[2022-09-10] MEDS: REMEDY PHYTOPLEX Z-GUARD PASTE 113GM TUBE (FROM STOREROOM PRODUCT) TOP SCH ×3 (08:03→20:58)
[2022-09-10 11:29] LABS: BASO # 0.1 10^3/uL (0.0-0.2); EOS # 0.2 10^3/uL (0.0-0.5); EOS % 3.1 % (0.0-3.0); HEMATOCRIT 34.2 % (36.0-47.0); HEMOGLOBIN 11.6 g/dl (12.0-15.5); LYMPH # 0.8 10^3/uL (1.5-5.0); LYMPH % 16.7 % (24.0-44.0); MEAN CORPUSCULAR HGB CONC 33.9 g/dl (32.0-36.5); MEAN CORPUSCULAR VOLUME 103.3 fl (80.0-96.0); MONO # 0.6 10^3/uL (0.0-0.8); MONO % 13.2 % (2.0-8.0); NEUTROPHILS # 3.1 10^3/uL (1.5-8.5); NEUTROPHILS % 65.8 % (36.0-66.0); PLATELET COUNT, AUTOMATED 325 10^3/uL (150-450); RED BLOOD COUNT 3.31 10^6/uL (4.00-5.40); WHITE BLOOD COUNT 4.8 10^3/uL (4.0-10.0)
[2022-09-10 11:51] LABS: BLOOD UREA NITROGEN 20 MG/DL (9-23); CARBON DIOXIDE LEVEL 24 MMOL/L (20-31); CHLORIDE LEVEL 102 MMOL/L (98-107); CREATININE FOR GFR 0.66 MG/DL (0.55-1.30); GLOMERULAR FILTRATION RATE > 60.0 (>32); GLUCOSE, FASTING 149 MG/DL (74-106); POTASSIUM SERUM 4.5 MMOL/L (3.5-5.1); SODIUM LEVEL 133 MMOL/L (136-145)
[2022-09-10 14:00] VITALS: BP 119/55
[2022-09-10 20:00] VITALS: BP 139/62
[2022-09-10] MEDS: SENNA 8.6 MG TAB (SENOKOT) PO SCH (20:56)
[2022-09-10] MEDS: ATORVASTATIN 10 MG TAB PO SCH (20:56)
[2022-09-11] MEDS: HEPARIN SOD (PORCINE) 5000UNITS/ML 1ML VIAL/SYRINGE SC SCH (05:45)
[2022-09-11 06:00] VITALS: BP 148/70
[2022-09-11] MEDS: INSULIN LISPRO (NovoLOG) PER UNIT SC SCH ×4 (07:11→21:00)
[2022-09-11] MEDS: DICLOFENAC EPOLAMINE 1.3% PATCH TOP SCH ×2 (07:20→21:18)
[2022-09-11] MEDS: MULTIVITAMINS/MINERALS THERAP 1 TAB PO SCH (07:21)
[2022-09-11] MEDS: MAGNESIUM OXIDE 400MG TAB (MAG-OX) PO SCH (07:21)
[2022-09-11] MEDS: OMEPRAZOLE 20MG CAP PO SCH (07:21)
[2022-09-11] MEDS: POTASSIUM CHLORIDE 10MEQ SR TABLET PO SCH (07:22)
[2022-09-11] MEDS: DOCUSATE SODIUM 100MG CAPSULE PO SCH ×2 (07:22→21:18)
[2022-09-11] MEDS: FOLIC ACID 1MG TAB PO SCH (07:22)
[2022-09-11] MEDS: HYDROXYCHLOROQUINE 200 MG TAB PO SCH (07:23)
[2022-09-11] MEDS: ASCORBIC ACID 250 MG TAB PO SCH ×2 (07:23→21:17)
[2022-09-11] MEDS: ACETAMINOPHEN 500 MG TAB PO SCH ×3 (07:23→21:18)
[2022-09-11] MEDS: amLODIPine 5 MG TAB PO SCH (07:23)
[2022-09-11] MEDS: REMEDY PHYTOPLEX Z-GUARD PASTE 113GM TUBE (FROM STOREROOM PRODUCT) TOP SCH ×3 (07:24→21:00)
[2022-09-11 14:00] VITALS: BP 125/58
[2022-09-11 20:00] VITALS: BP 136/63
[2022-09-11] MEDS: SENNA 8.6 MG TAB (SENOKOT) PO SCH (21:17)
[2022-09-11] MEDS: ATORVASTATIN 10 MG TAB PO SCH (21:18)
[2022-09-12 06:00] VITALS: BP 143/67
[2022-09-12 06:46] LABS: BASO % 1.3 % (0.0-1.0); EOS # 0.2 10^3/uL (0.0-0.5); EOS % 5.3 % (0.0-3.0); HEMATOCRIT 36.8 % (36.0-47.0); HEMOGLOBIN 12.3 g/dl (12.0-15.5); LYMPH # 0.6 10^3/uL (1.5-5.0); LYMPH % 20.1 % (24.0-44.0); MEAN CORPUSCULAR HEMOGLOBIN 34.3 pg (27.0-33.0); MEAN CORPUSCULAR HGB CONC 33.4 g/dl (32.0-36.5); MEAN CORPUSCULAR VOLUME 102.5 fl (80.0-96.0); MONO # 0.5 10^3/uL (0.0-0.8); MONO % 14.8 % (2.0-8.0); NEUTROPHILS # 1.9 10^3/uL (1.5-8.5); NEUTROPHILS % 58.2 % (36.0-66.0); PLATELET COUNT, AUTOMATED 317 10^3/uL (150-450); RED BLOOD COUNT 3.59 10^6/uL (4.00-5.40); WHITE BLOOD COUNT 3.2 10^3/uL (4.0-10.0)
[2022-09-12 07:06] LABS: BLOOD UREA NITROGEN 20 MG/DL (9-23); CALCIUM LEVEL 9.4 MG/DL (8.3-10.6); CARBON DIOXIDE LEVEL 28 MMOL/L (20-31); CHLORIDE LEVEL 99 MMOL/L (98-107); CREATININE FOR GFR 0.61 MG/DL (0.55-1.30); GLOMERULAR FILTRATION RATE > 60.0 (>32); GLUCOSE, FASTING 111 MG/DL (74-106); POTASSIUM SERUM 4.5 MMOL/L (3.5-5.1); SODIUM LEVEL 131 MMOL/L (136-145)
[2022-09-12] MEDS: ENOXAPARIN 40MG/0.4ML SYRINGE (J1650 PER 10MG) SC SCH (08:53)
[2022-09-12] MEDS: OMEPRAZOLE 20MG CAP PO SCH (08:53)
[2022-09-12] MEDS: POTASSIUM CHLORIDE 10MEQ SR TABLET PO SCH (08:54)
[2022-09-12] MEDS: FOLIC ACID 1MG TAB PO SCH (08:54)
[2022-09-12] MEDS: MAGNESIUM OXIDE 400MG TAB (MAG-OX) PO SCH (08:54)
[2022-09-12] MEDS: MULTIVITAMINS/MINERALS THERAP 1 TAB PO SCH (08:54)
[2022-09-12] MEDS: ASCORBIC ACID 250 MG TAB PO SCH ×2 (08:54→20:37)
[2022-09-12] MEDS: amLODIPine 5 MG TAB PO SCH (08:54)
[2022-09-12] MEDS: DOCUSATE SODIUM 100MG CAPSULE PO SCH ×2 (08:54→20:38)
[2022-09-12] MEDS: HYDROXYCHLOROQUINE 200 MG TAB PO SCH (08:54)
[2022-09-12] MEDS: DICLOFENAC EPOLAMINE 1.3% PATCH TOP SCH ×2 (08:55→20:34)
[2022-09-12] MEDS: ACETAMINOPHEN 500 MG TAB PO SCH ×3 (08:55→20:38)
[2022-09-12] MEDS: REMEDY PHYTOPLEX Z-GUARD PASTE 113GM TUBE (FROM STOREROOM PRODUCT) TOP SCH ×3 (08:56→20:39)
[2022-09-12] MEDS: INSULIN LISPRO (NovoLOG) PER UNIT SC SCH ×4 (08:58→20:38)
[2022-09-12 14:00] VITALS: BP 122/58
[2022-09-12 20:00] VITALS: BP 110/53
[2022-09-12] MEDS: SENNA 8.6 MG TAB (SENOKOT) PO SCH (20:38)
[2022-09-12] MEDS: ATORVASTATIN 10 MG TAB PO SCH (20:38)
[2022-09-13 06:00] VITALS: BP 108/56
[2022-09-13] MEDS: DOCUSATE SODIUM 100MG CAPSULE PO SCH ×2 (08:10→21:26)
[2022-09-13] MEDS: DICLOFENAC EPOLAMINE 1.3% PATCH TOP SCH ×2 (08:10→21:26)
[2022-09-13] MEDS: INSULIN LISPRO (NovoLOG) PER UNIT SC SCH ×4 (08:10→21:00)
[2022-09-13] MEDS: FOLIC ACID 1MG TAB PO SCH (08:10)
[2022-09-13] MEDS: MAGNESIUM OXIDE 400MG TAB (MAG-OX) PO SCH (08:11)
[2022-09-13] MEDS: POTASSIUM CHLORIDE 10MEQ SR TABLET PO SCH (08:11)
[2022-09-13] MEDS: OMEPRAZOLE 20MG CAP PO SCH (08:12)
[2022-09-13] MEDS: HYDROXYCHLOROQUINE 200 MG TAB PO SCH (08:12)
[2022-09-13] MEDS: amLODIPine 5 MG TAB PO SCH (08:12)
[2022-09-13] MEDS: MULTIVITAMINS/MINERALS THERAP 1 TAB PO SCH (08:12)
[2022-09-13] MEDS: ACETAMINOPHEN 500 MG TAB PO SCH ×3 (08:13→21:27)
[2022-09-13] MEDS: ASCORBIC ACID 250 MG TAB PO SCH ×2 (08:13→21:27)
[2022-09-13] MEDS: ENOXAPARIN 40MG/0.4ML SYRINGE (J1650 PER 10MG) SC SCH (08:13)
[2022-09-13] MEDS: REMEDY PHYTOPLEX Z-GUARD PASTE 113GM TUBE (FROM STOREROOM PRODUCT) TOP SCH ×3 (08:14→21:00)
[2022-09-13 14:13] VITALS: BP 102/50
[2022-09-13] MEDS: CALCIUM CARBONATE 500 MG CHEW U/D PO PRN (16:59)
[2022-09-13 20:00] VITALS: BP 127/58
[2022-09-13] MEDS: SENNA 8.6 MG TAB (SENOKOT) PO SCH (21:26)
[2022-09-13] MEDS: ATORVASTATIN 10 MG TAB PO SCH (21:27)
[2022-09-14 06:00] VITALS: BP_SYST 136; BP_SYST 156; BP_DIAS 64; BP_DIAS 68
[2022-09-14] MEDS: REMEDY PHYTOPLEX Z-GUARD PASTE 113GM TUBE (FROM STOREROOM PRODUCT) TOP SCH ×3 (09:00→21:34)
[2022-09-14] MEDS: DOCUSATE SODIUM 100MG CAPSULE PO SCH ×2 (09:19→21:31)
[2022-09-14] MEDS: INSULIN LISPRO (NovoLOG) PER UNIT SC SCH ×4 (09:19→21:00)
[2022-09-14] MEDS: POTASSIUM CHLORIDE 10MEQ SR TABLET PO SCH (09:20)
[2022-09-14] MEDS: ACETAMINOPHEN 500 MG TAB PO SCH ×3 (09:20→21:31)
[2022-09-14] MEDS: ASCORBIC ACID 250 MG TAB PO SCH ×2 (09:21→21:31)
[2022-09-14] MEDS: ENOXAPARIN 40MG/0.4ML SYRINGE (J1650 PER 10MG) SC SCH (09:21)
[2022-09-14] MEDS: DICLOFENAC EPOLAMINE 1.3% PATCH TOP SCH ×2 (09:21→21:32)
[2022-09-14] MEDS: OMEPRAZOLE 20MG CAP PO SCH (09:22)
[2022-09-14] MEDS: MULTIVITAMINS/MINERALS THERAP 1 TAB PO SCH (09:22)
[2022-09-14] MEDS: FOLIC ACID 1MG TAB PO SCH (09:22)
[2022-09-14] MEDS: HYDROXYCHLOROQUINE 200 MG TAB PO SCH (09:22)
[2022-09-14] MEDS: MAGNESIUM OXIDE 400MG TAB (MAG-OX) PO SCH (09:22)
[2022-09-14] MEDS: amLODIPine 5 MG TAB PO SCH (09:23)
[2022-09-14] MEDS: METHOTREXATE 2.5MG TAB PO SCH (09:25)
[2022-09-14 14:00] VITALS: BP 105/52
[2022-09-14 20:00] VITALS: BP 123/60
[2022-09-14] MEDS: CALCIUM CARBONATE 500 MG CHEW U/D PO PRN (21:31)
[2022-09-14] MEDS: ATORVASTATIN 10 MG TAB PO SCH (21:31)
[2022-09-14] MEDS: SENNA 8.6 MG TAB (SENOKOT) PO SCH (21:31)
[2022-09-15 06:00] VITALS: BP 133/60
[2022-09-15 06:52] LABS: EOS # 0.1 10^3/uL (0.0-0.5); EOS % 3.5 % (0.0-3.0); HEMATOCRIT 37.4 % (36.0-47.0); HEMOGLOBIN 12.3 g/dl (12.0-15.5); LYMPH # 0.5 10^3/uL (1.5-5.0); LYMPH % 17.1 % (24.0-44.0); MEAN CORPUSCULAR HEMOGLOBIN 34.1 pg (27.0-33.0); MEAN CORPUSCULAR HGB CONC 32.9 g/dl (32.0-36.5); MEAN CORPUSCULAR VOLUME 103.6 fl (80.0-96.0); MONO # 0.5 10^3/uL (0.0-0.8); MONO % 15.6 % (2.0-8.0); NEUTROPHILS % 62.2 % (36.0-66.0); PLATELET COUNT, AUTOMATED 305 10^3/uL (150-450); RED BLOOD COUNT 3.61 10^6/uL (4.00-5.40); WHITE BLOOD COUNT 3.2 10^3/uL (4.0-10.0)
[2022-09-15 07:26] LABS: BLOOD UREA NITROGEN 16 MG/DL (9-23); CALCIUM LEVEL 8.9 MG/DL (8.3-10.6); CARBON DIOXIDE LEVEL 28 MMOL/L (20-31); CHLORIDE LEVEL 98 MMOL/L (98-107); GLOMERULAR FILTRATION RATE > 60.0 (>32); GLUCOSE, FASTING 84 MG/DL (74-106); POTASSIUM SERUM 4.7 MMOL/L (3.5-5.1); SODIUM LEVEL 132 MMOL/L (136-145)
[2022-09-15] MEDS: INSULIN LISPRO (NovoLOG) PER UNIT SC SCH ×4 (07:30→20:32)
[2022-09-15] MEDS: POTASSIUM CHLORIDE 10MEQ SR TABLET PO SCH (10:29)
[2022-09-15] MEDS: MULTIVITAMINS/MINERALS THERAP 1 TAB PO SCH (10:29)
[2022-09-15] MEDS: MAGNESIUM OXIDE 400MG TAB (MAG-OX) PO SCH (10:29)
[2022-09-15] MEDS: DOCUSATE SODIUM 100MG CAPSULE PO SCH ×2 (10:30→20:31)
[2022-09-15] MEDS: ASCORBIC ACID 250 MG TAB PO SCH ×2 (10:30→20:31)
[2022-09-15] MEDS: FOLIC ACID 1MG TAB PO SCH (10:30)
[2022-09-15] MEDS: OMEPRAZOLE 20MG CAP PO SCH (10:30)
[2022-09-15] MEDS: HYDROXYCHLOROQUINE 200 MG TAB PO SCH (10:30)
[2022-09-15] MEDS: ENOXAPARIN 40MG/0.4ML SYRINGE (J1650 PER 10MG) SC SCH (10:31)
[2022-09-15] MEDS: DICLOFENAC EPOLAMINE 1.3% PATCH TOP SCH ×2 (10:31→20:31)
[2022-09-15] MEDS: amLODIPine 5 MG TAB PO SCH (10:31)
[2022-09-15] MEDS: REMEDY PHYTOPLEX Z-GUARD PASTE 113GM TUBE (FROM STOREROOM PRODUCT) TOP SCH ×3 (10:32→20:32)
[2022-09-15] MEDS: ACETAMINOPHEN 500 MG TAB PO SCH ×3 (10:32→20:31)
[2022-09-15] MEDS: CALCIUM CARBONATE 500 MG CHEW U/D PO PRN (13:37)
[2022-09-15 14:00] VITALS: BP 108/53
[2022-09-15 20:00] VITALS: BP 126/60
[2022-09-15] MEDS: SENNA 8.6 MG TAB (SENOKOT) PO SCH (20:31)
[2022-09-15] MEDS: ATORVASTATIN 10 MG TAB PO SCH (20:31)
[2022-09-16 06:00] VITALS: BP 118/58
[2022-09-16] MEDS: ASCORBIC ACID 250 MG TAB PO SCH ×2 (08:21→20:35)
[2022-09-16] MEDS: MULTIVITAMINS/MINERALS THERAP 1 TAB PO SCH (08:21)
[2022-09-16] MEDS: DOCUSATE SODIUM 100MG CAPSULE PO SCH ×2 (08:22→20:35)
[2022-09-16] MEDS: FOLIC ACID 1MG TAB PO SCH (08:22)
[2022-09-16] MEDS: OMEPRAZOLE 20MG CAP PO SCH (08:22)
[2022-09-16] MEDS: POTASSIUM CHLORIDE 10MEQ SR TABLET PO SCH (08:22)
[2022-09-16] MEDS: HYDROXYCHLOROQUINE 200 MG TAB PO SCH (08:22)
[2022-09-16] MEDS: MAGNESIUM OXIDE 400MG TAB (MAG-OX) PO SCH (08:22)
[2022-09-16] MEDS: amLODIPine 5 MG TAB PO SCH (08:23)
[2022-09-16] MEDS: INSULIN LISPRO (NovoLOG) PER UNIT SC SCH ×4 (08:23→20:31)
[2022-09-16] MEDS: DICLOFENAC EPOLAMINE 1.3% PATCH TOP SCH ×2 (08:23→20:36)
[2022-09-16] MEDS: ENOXAPARIN 40MG/0.4ML SYRINGE (J1650 PER 10MG) SC SCH (08:23)
[2022-09-16] MEDS: REMEDY PHYTOPLEX Z-GUARD PASTE 113GM TUBE (FROM STOREROOM PRODUCT) TOP SCH ×3 (08:24→20:36)
[2022-09-16] MEDS: ACETAMINOPHEN 500 MG TAB PO SCH ×3 (08:24→20:35)
[2022-09-16 14:00] VITALS: BP 117/54
[2022-09-16 20:00] VITALS: BP 144/65
[2022-09-16] MEDS: SENNA 8.6 MG TAB (SENOKOT) PO SCH (20:35)
[2022-09-16] MEDS: ATORVASTATIN 10 MG TAB PO SCH (20:35)
[2022-09-17 06:00] VITALS: BP 159/71
[2022-09-17] MEDS: INSULIN LISPRO (NovoLOG) PER UNIT SC SCH ×4 (07:20→20:34)
[2022-09-17] MEDS: REMEDY PHYTOPLEX Z-GUARD PASTE 113GM TUBE (FROM STOREROOM PRODUCT) TOP SCH ×3 (09:00→20:35)
[2022-09-17] MEDS: DOCUSATE SODIUM 100MG CAPSULE PO SCH ×2 (09:39→20:32)
[2022-09-17] MEDS: FOLIC ACID 1MG TAB PO SCH (09:39)
[2022-09-17] MEDS: MAGNESIUM OXIDE 400MG TAB (MAG-OX) PO SCH (09:40)
[2022-09-17] MEDS: MULTIVITAMINS/MINERALS THERAP 1 TAB PO SCH (09:40)
[2022-09-17] MEDS: HYDROXYCHLOROQUINE 200 MG TAB PO SCH (09:40)
[2022-09-17] MEDS: ENOXAPARIN 40MG/0.4ML SYRINGE (J1650 PER 10MG) SC SCH (09:40)
[2022-09-17] MEDS: ASCORBIC ACID 250 MG TAB PO SCH ×2 (09:40→20:32)
[2022-09-17] MEDS: OMEPRAZOLE 20MG CAP PO SCH (09:41)
[2022-09-17] MEDS: amLODIPine 5 MG TAB PO SCH (09:41)
[2022-09-17] MEDS: POTASSIUM CHLORIDE 10MEQ SR TABLET PO SCH (09:42)
[2022-09-17] MEDS: ACETAMINOPHEN 500 MG TAB PO SCH ×3 (09:42→20:33)
[2022-09-17] MEDS: DICLOFENAC EPOLAMINE 1.3% PATCH TOP SCH ×2 (09:45→20:29)
[2022-09-17 11:11] LABS: BASO % 1.1 % (0.0-1.0); EOS # 0.1 10^3/uL (0.0-0.5); EOS % 3.7 % (0.0-3.0); HEMATOCRIT 34.7 % (36.0-47.0); LYMPH # 0.8 10^3/uL (1.5-5.0); LYMPH % 21.2 % (24.0-44.0); MEAN CORPUSCULAR HEMOGLOBIN 35.5 pg (27.0-33.0); MEAN CORPUSCULAR HGB CONC 34.6 g/dl (32.0-36.5); MEAN CORPUSCULAR VOLUME 102.7 fl (80.0-96.0); MONO # 0.6 10^3/uL (0.0-0.8); NEUTROPHILS # 2.1 10^3/uL (1.5-8.5); NEUTROPHILS % 56.7 % (36.0-66.0); PLATELET COUNT, AUTOMATED 340 10^3/uL (150-450); RED BLOOD COUNT 3.38 10^6/uL (4.00-5.40); WHITE BLOOD COUNT 3.8 10^3/uL (4.0-10.0)
[2022-09-17 11:27] LABS: BLOOD UREA NITROGEN 21 MG/DL (9-23); CARBON DIOXIDE LEVEL 28 MMOL/L (20-31); CHLORIDE LEVEL 98 MMOL/L (98-107); CREATININE FOR GFR 0.54 MG/DL (0.55-1.30); GLOMERULAR FILTRATION RATE > 60.0 (>32); GLUCOSE, FASTING 105 MG/DL (74-106); POTASSIUM SERUM 4.3 MMOL/L (3.5-5.1); SODIUM LEVEL 132 MMOL/L (136-145)
[2022-09-17 14:00] VITALS: BP 115/56
[2022-09-17 20:22] VITALS: BP 133/63
[2022-09-17] MEDS: SENNA 8.6 MG TAB (SENOKOT) PO SCH (20:32)
[2022-09-17] MEDS: ATORVASTATIN 10 MG TAB PO SCH (20:32)
[2022-09-18 05:46] VITALS: BP 143/65
[2022-09-18] MEDS: INSULIN LISPRO (NovoLOG) PER UNIT SC SCH ×4 (07:52→20:55)
[2022-09-18] MEDS: DICLOFENAC EPOLAMINE 1.3% PATCH TOP SCH ×2 (07:52→20:49)
[2022-09-18] MEDS: DOCUSATE SODIUM 100MG CAPSULE PO SCH ×2 (07:52→20:55)
[2022-09-18] MEDS: HYDROXYCHLOROQUINE 200 MG TAB PO SCH (07:53)
[2022-09-18] MEDS: OMEPRAZOLE 20MG CAP PO SCH (07:53)
[2022-09-18] MEDS: FOLIC ACID 1MG TAB PO SCH (07:53)
[2022-09-18] MEDS: ACETAMINOPHEN 500 MG TAB PO SCH ×3 (07:53→20:55)
[2022-09-18] MEDS: MAGNESIUM OXIDE 400MG TAB (MAG-OX) PO SCH (07:53)
[2022-09-18] MEDS: POTASSIUM CHLORIDE 10MEQ SR TABLET PO SCH (07:54)
[2022-09-18] MEDS: ASCORBIC ACID 250 MG TAB PO SCH ×2 (07:54→20:55)
[2022-09-18] MEDS: ENOXAPARIN 40MG/0.4ML SYRINGE (J1650 PER 10MG) SC SCH (07:54)
[2022-09-18] MEDS: MULTIVITAMINS/MINERALS THERAP 1 TAB PO SCH (07:54)
[2022-09-18] MEDS: REMEDY PHYTOPLEX Z-GUARD PASTE 113GM TUBE (FROM STOREROOM PRODUCT) TOP SCH ×3 (07:55→20:58)
[2022-09-18] MEDS: amLODIPine 5 MG TAB PO SCH (07:56)
[2022-09-18] MEDS ORDERED: ATOR1TAB19 PO (12:39)
[2022-09-18] MEDS ORDERED: POTA-136 PO (12:39)
[2022-09-18] MEDS ORDERED: FOLI1TAB11 PO (12:40)
[2022-09-18] MEDS ORDERED: OMEP40CA4 PO (12:40)
[2022-09-18] MEDS ORDERED: HYDR200T3 PO (12:40)
[2022-09-18] MEDS ORDERED: NORV5TAB PO (12:40)
[2022-09-18] MEDS ORDERED: SITA50TAB PO (12:40)
[2022-09-18 14:00] VITALS: BP 122/56
[2022-09-18 20:00] VITALS: BP 140/64
[2022-09-18] MEDS: SENNA 8.6 MG TAB (SENOKOT) PO SCH (20:55)
[2022-09-18] MEDS: ATORVASTATIN 10 MG TAB PO SCH (20:55)
[2022-09-19 06:00] VITALS: BP 143/70
[2022-09-19] MEDS: INSULIN LISPRO (NovoLOG) PER UNIT SC SCH ×2 (07:30→12:22)
[2022-09-19 08:23] VITALS: BP 143/70
[2022-09-19] MEDS: amLODIPine 5 MG TAB PO SCH (08:23)
[2022-09-19] MEDS: FOLIC ACID 1MG TAB PO SCH (08:23)
[2022-09-19] MEDS: ENOXAPARIN 40MG/0.4ML SYRINGE (J1650 PER 10MG) SC SCH (08:24)
[2022-09-19] MEDS: MAGNESIUM OXIDE 400MG TAB (MAG-OX) PO SCH (08:24)
[2022-09-19] MEDS: DOCUSATE SODIUM 100MG CAPSULE PO SCH (08:24)
[2022-09-19] MEDS: POTASSIUM CHLORIDE 10MEQ SR TABLET PO SCH (08:24)
[2022-09-19] MEDS: OMEPRAZOLE 20MG CAP PO SCH (08:24)
[2022-09-19] MEDS: MULTIVITAMINS/MINERALS THERAP 1 TAB PO SCH (08:24)
[2022-09-19] MEDS: DICLOFENAC EPOLAMINE 1.3% PATCH TOP SCH (08:25)
[2022-09-19] MEDS: REMEDY PHYTOPLEX Z-GUARD PASTE 113GM TUBE (FROM STOREROOM PRODUCT) TOP SCH (08:25)
[2022-09-19] MEDS: ACETAMINOPHEN 500 MG TAB PO SCH (08:25)
[2022-09-19] MEDS: HYDROXYCHLOROQUINE 200 MG TAB PO SCH (08:25)
[2022-09-19] MEDS: ASCORBIC ACID 250 MG TAB PO SCH (08:25)
== END 2022-09-19 14:05 | disposition home health service (06) | DRG 561 ==
LOC: M PM&R 14:05
PROVIDERS: ADMIT Physical Medicine & Rehabilitation; ATTEND Physical Medicine & Rehabilitation
DX: S82.035D Nondisplaced transverse fracture of left patella, subsequent encounter for closed fracture with routine healing (principal); S82.091D Other fracture of right patella, subsequent encounter for closed fracture with routine healing; M06.9 Rheumatoid arthritis, unspecified; R26.89 Other abnormalities of gait and mobility; I12.9 Hypertensive chronic kidney disease with stage 1 through stage 4 chronic kidney disease, or unspecified chronic kidney disease; I44.1 Atrioventricular block, second degree; N18.9 Chronic kidney disease, unspecified; E78.5 Hyperlipidemia, unspecified; D72.819 Decreased white blood cell count, unspecified; R52 Pain, unspecified; E11.22 Type 2 diabetes mellitus with diabetic chronic kidney disease; K21.9 Gastro-esophageal reflux disease without esophagitis; Z95.0 Presence of cardiac pacemaker; Z74.09 Other reduced mobility; Z74.1 Need for assistance with personal care; Z87.891 Personal history of nicotine dependence; Z79.899 Other long term (current) drug therapy; Z88.1 Allergy status to other antibiotic agents; Z88.2 Allergy status to sulfonamides; Z88.8 Allergy status to other drugs, medicaments and biological substances

== ENCOUNTER → 2022-09-29 | Outpatient (CLI) | payer MEDICARE, OTHER | LOC: M SOG 11:00 | PROVIDERS: ATTEND Orthopaedic Surgery Adult Reconstructive Orthopaedic Surgery | DX: M25.562 Pain in left knee (principal); S82.032A Displaced transverse fracture of left patella, initial encounter for closed fracture; X58.XXXA Exposure to other specified factors, initial encounter; Y92.9 Unspecified place or not applicable; Y93.9 Activity, unspecified; Y99.9 Unspecified external cause status; M25.462 Effusion, left knee ==

== ENCOUNTER → 2022-10-20 | Outpatient (CLI) | payer MEDICARE, OTHER | LOC: M SOG 13:40 | PROVIDERS: ATTEND Orthopaedic Surgery | DX: S82.032D Displaced transverse fracture of left patella, subsequent encounter for closed fracture with routine healing (principal) ==

== ENCOUNTER → 2022-11-03 | Outpatient (CLI) | payer MEDICARE, OTHER ==
[~2022-11-03] MED LIST changes: -LOSA100T45 PO; +LOSA100T46 PO
== END ==
LOC: M SOG 08:09
PROVIDERS: ATTEND Orthopaedic Surgery
DX: S82.032D Displaced transverse fracture of left patella, subsequent encounter for closed fracture with routine healing (principal)

== ENCOUNTER → 2023-01-07 | Outpatient (CLI) | payer MEDICARE, OTHER ==
[~2023-01-07] MED LIST changes: -HYDR200T3 PO; +HYDR200T46 PO
== END ==
LOC: M SOG 08:32
PROVIDERS: ATTEND Orthopaedic Surgery
DX: S82.032D Displaced transverse fracture of left patella, subsequent encounter for closed fracture with routine healing (principal)

== ENCOUNTER → 2023-05-04 | Outpatient (CLI) | payer MEDICARE, OTHER ==
[2023-05-04 14:11] LABS: C REACTIVE PROTEIN QUANTITATIV < 0.40 MG/DL (<1.0)
[2023-05-04 14:13] LABS: ALKALINE PHOSPHATASE 57 U/L (46-116); ALT/SGPT 15 U/L (7.0-40); AST/SGOT 22 U/L (<34); BILIRUBIN,TOTAL 0.4 MG/DL (0.3-1.2); BLOOD UREA NITROGEN 12 MG/DL (9-23); CALCIUM LEVEL 8.9 MG/DL (8.3-10.6); CARBON DIOXIDE LEVEL 28 MMOL/L (20-31); CHLORIDE LEVEL 102 MMOL/L (98-107); GLOMERULAR FILTRATION RATE > 60.0 (>32); GLUCOSE, FASTING 120 MG/DL (74-106); SODIUM LEVEL 139 MMOL/L (136-145); TOTAL PROTEIN 7.2 G/DL (5.7-8.2)
[2023-05-04 14:14] LABS: BASO % 0.3 % (0.0-1.0); EOS # 0.1 10^3/uL (0.0-0.5); EOS % 2.7 % (0.0-3.0); HEMATOCRIT 39.1 % (36.0-47.0); HEMOGLOBIN 13.3 g/dl (12.0-15.5); LYMPH % 29.5 % (24.0-44.0); MEAN CORPUSCULAR HEMOGLOBIN 34.8 pg (27.0-33.0); MEAN CORPUSCULAR VOLUME 102.4 fl (80.0-96.0); MONO # 0.5 10^3/uL (0.0-0.8); MONO % 14.9 % (2.0-8.0); NEUTROPHILS # 1.8 10^3/uL (1.5-8.5); NEUTROPHILS % 52.3 % (36.0-66.0); PLATELET COUNT, AUTOMATED 276 10^3/uL (150-450); RED BLOOD COUNT 3.82 10^6/uL (4.00-5.40); WHITE BLOOD COUNT 3.4 10^3/uL (4.0-10.0)
[2023-05-04 14:15] LABS: RHEUMATOID FACTOR QUANT < 3.5 IU/ML (<14)
[2023-05-04 14:37] LABS: ERYTHROCYTE SEDIMENTATION RATE 19 mm/hr (0-30)
[2023-05-05 23:08] LABS: CYCLIC CITRULLINATED PEPTIDE 3 units (0-19)
== END ==
LOC: M PLALAB 09:03
PROVIDERS: ATTEND Internal Medicine Hematology
DX: M06.9 Rheumatoid arthritis, unspecified (principal)

== ENCOUNTER 2023-06-30 06:57 | Emergency (ER) | payer MEDICARE, OTHER ==
[~2023-06-30] VITALS: Ht 157.5 cm; Wt 50.0 kg
[2023-06-30] MEDS ORDERED: METO1TAB32 (07:22)
[2023-06-30] MEDS ORDERED: CETI-24 (07:22)
[2023-06-30 07:59] LABS: BASO % 0.5 % (0.0-1.0); EOS # 0.2 10^3/uL (0.0-0.5); EOS % 2.9 % (0.0-3.0); HEMOGLOBIN 13.7 g/dl (12.0-15.5); LYMPH # 0.7 10^3/uL (1.5-5.0); MEAN CORPUSCULAR HEMOGLOBIN 34.4 pg (27.0-33.0); MEAN CORPUSCULAR HGB CONC 34.3 g/dl (32.0-36.5); MEAN CORPUSCULAR VOLUME 100.5 fl (80.0-96.0); MONO # 0.5 10^3/uL (0.0-0.8); MONO % 8.7 % (2.0-8.0); NEUTROPHILS # 4.1 10^3/uL (1.5-8.5); NEUTROPHILS % 74.5 % (36.0-66.0); PLATELET COUNT, AUTOMATED 311 10^3/uL (150-450); RED BLOOD COUNT 3.98 10^6/uL (4.00-5.40); WHITE BLOOD COUNT 5.5 10^3/uL (4.0-10.0)
[2023-06-30 08:18] LABS: LIPASE 25 U/L (12-53)
[2023-06-30 08:20] LABS: ALBUMIN 3.8 G/DL (3.2-5.2); ALKALINE PHOSPHATASE 97 U/L (46-116); ALT/SGPT 12 U/L (7.0-40); AST/SGOT 23 U/L (<34); BILIRUBIN,DIRECT 0.2 MG/DL (<0.4); BILIRUBIN,TOTAL 0.5 MG/DL (0.3-1.2); BLOOD UREA NITROGEN 12 MG/DL (9-23); CALCIUM LEVEL 9.4 MG/DL (8.3-10.6); CARBON DIOXIDE LEVEL 27 MMOL/L (20-31); CHLORIDE LEVEL 102 MMOL/L (98-107); CREATININE FOR GFR 0.67 MG/DL (0.55-1.30); GLOMERULAR FILTRATION RATE > 60.0 (>32); GLUCOSE, FASTING 109 MG/DL (74-106); POTASSIUM SERUM 3.9 MMOL/L (3.5-5.1); SODIUM LEVEL 137 MMOL/L (136-145); TOTAL PROTEIN 7.2 G/DL (5.7-8.2)
[2023-06-30] MEDS ORDERED: amLODIPine 5 MG TAB PO ONE (10:00)
[2023-06-30] MEDS ORDERED: MORPHINE 4 MG/ML 1ML VIAL IV ONE (10:20)
[2023-06-30] MEDS ORDERED: NS 1,000 ML IV SCH (10:25)
[2023-06-30] MEDS: GASTROGRAFIN SOLUTION 30ML PO SCH ×2 (12:12→12:49)
[2023-06-30] MEDS ORDERED: ISOVUE-370 76% 100ML VIAL As Ordered ONE (13:32)
[2023-06-30] MEDS ORDERED: ONDANSETRON 4MG 2ML VIAL IV ONE (14:05)
[2023-06-30] MEDS ORDERED: LABETALOL 100MG/20ML VIAL IV STA (14:39)
[2023-06-30 14:44] VITALS: BP 200/92
[2023-06-30 14:58] LABS: CK-MB VALUE MASS < 1.0 NG/ML (<3.6)
[2023-06-30 15:05] LABS: CPK CREATINE PHOSPHOKINASE 66 U/L (34-145); MB/CK RELATIVE INDEX 1.51 (< OR =4)
[2023-06-30] MEDS ORDERED: MED REC IN PROGRESS XX SCH (16:15)
[2023-06-30 16:16] LABS: RSV AMPLIFICATION NEGATIVE (NEGATIVE)
[2023-06-30 17:28] VITALS: BP 176/80; TEMP 98.5; O2SAT 99
== END 2023-06-30 17:40 | disposition home or self-care (01) ==
LOC: M ED 06:57 → EDBD 06:57 → M ED 17:40
DX: S32.040A Wedge compression fracture of fourth lumbar vertebra, initial encounter for closed fracture (principal); R10.9 Unspecified abdominal pain; I16.0 Hypertensive urgency; I45.89 Other specified conduction disorders; E11.9 Type 2 diabetes mellitus without complications; I10 Essential (primary) hypertension; N18.9 Chronic kidney disease, unspecified; Z87.891 Personal history of nicotine dependence; Z88.1 Allergy status to other antibiotic agents; Z88.2 Allergy status to sulfonamides; Z88.8 Allergy status to other drugs, medicaments and biological substances; Z79.83 Long term (current) use of bisphosphonates; Z79.02 Long term (current) use of antithrombotics/antiplatelets; Z79.899 Other long term (current) drug therapy
CPT/HCPCS: 71046; 74177; 80048; 80076; 81001; 82550; 82553; 83605; 83690; 84484; 85025; 87486; 87581; 87631; 87633; 87798; 93005; 93041; 96361; 96374; 96375; 99285; J1920; J2405; Q9963; Q9967

== ENCOUNTER → 2023-07-06 | Outpatient (CLI) | payer MEDICARE, OTHER ==
[~2023-07-06] MED LIST changes: +CETI-24; +METO1TAB32
== END ==
LOC: M SOG 08:12
PROVIDERS: ATTEND Orthopaedic Surgery
DX: M54.50 Low back pain, unspecified (principal); M48.56XA Collapsed vertebra, not elsewhere classified, lumbar region, initial encounter for fracture; M85.88 Other specified disorders of bone density and structure, other site; M47.816 Spondylosis without myelopathy or radiculopathy, lumbar region

== ENCOUNTER → 2023-07-13 | Outpatient (REF) | payer MEDICARE, OTHER ==
[2023-07-13 18:19] LABS: BASO % 0.6 % (0.0-1.0); EOS # 0.1 10^3/uL (0.0-0.5); HEMATOCRIT 39.9 % (36.0-47.0); HEMOGLOBIN 13.7 g/dl (12.0-15.5); LYMPH % 21.3 % (24.0-44.0); MEAN CORPUSCULAR HEMOGLOBIN 34.3 pg (27.0-33.0); MEAN CORPUSCULAR HGB CONC 34.3 g/dl (32.0-36.5); MEAN CORPUSCULAR VOLUME 99.8 fl (80.0-96.0); MONO # 0.6 10^3/uL (0.0-0.8); MONO % 11.8 % (2.0-8.0); NEUTROPHILS # 2.9 10^3/uL (1.5-8.5); NEUTROPHILS % 63.1 % (36.0-66.0); PLATELET COUNT, AUTOMATED 330 10^3/uL (150-450); WHITE BLOOD COUNT 4.7 10^3/uL (4.0-10.0)
[2023-07-13 18:22] LABS: ALBUMIN 3.9 G/DL (3.2-5.2); ALKALINE PHOSPHATASE 101 U/L (46-116); ALT/SGPT 14 U/L (7.0-40); AST/SGOT 18 U/L (<34); BILIRUBIN,TOTAL 0.5 MG/DL (0.3-1.2); BLOOD UREA NITROGEN 14 MG/DL (9-23); CALCIUM LEVEL 9.1 MG/DL (8.3-10.6); CARBON DIOXIDE LEVEL 29 MMOL/L (20-31); CHLORIDE LEVEL 100 MMOL/L (98-107); CREATININE FOR GFR 0.65 MG/DL (0.55-1.30); GLOMERULAR FILTRATION RATE > 60.0 (>32); GLUCOSE, FASTING 105 MG/DL (74-106); POTASSIUM SERUM 4.1 MMOL/L (3.5-5.1); SODIUM LEVEL 134 MMOL/L (136-145); TOTAL PROTEIN 7.3 G/DL (5.7-8.2)
[2023-07-13 18:24] LABS: TOTAL 25(OH) VITAMIN D 55.9 NG/ML (20.0-100.0)
== END ==
LOC: M LABDRWAD 17:11
PROVIDERS: ATTEND Orthopaedic Surgery
DX: M48.50XA Collapsed vertebra, not elsewhere classified, site unspecified, initial encounter for fracture (principal); Z79.899 Other long term (current) drug therapy

== ENCOUNTER → 2023-08-06 | Outpatient (CLI) | payer MEDICARE, OTHER | LOC: M SOG 08:00 | PROVIDERS: ATTEND Orthopaedic Surgery | DX: M54.50 Low back pain, unspecified (principal); M48.56XA Collapsed vertebra, not elsewhere classified, lumbar region, initial encounter for fracture; M43.16 Spondylolisthesis, lumbar region ==

== ENCOUNTER → 2023-08-17 | Outpatient (CLI) | payer MEDICARE, OTHER | LOC: M WHC 12:37 | PROVIDERS: ATTEND Orthopaedic Surgery | DX: M81.0 Age-related osteoporosis without current pathological fracture (principal) ==

== ENCOUNTER → 2023-11-25 | Outpatient (REF) | payer MEDICARE, OTHER ==
[2023-11-25 18:24] LABS: ALBUMIN 4.3 G/DL (3.2-5.2); ALKALINE PHOSPHATASE 64 U/L (46-116); ALT/SGPT 19 U/L (7.0-40); AST/SGOT 18 U/L (<34); BILIRUBIN,TOTAL 0.6 MG/DL (0.3-1.2); BLOOD UREA NITROGEN 14 MG/DL (9-23); CALCIUM LEVEL 9.9 MG/DL (8.3-10.6); CARBON DIOXIDE LEVEL 29 MMOL/L (20-31); CHLORIDE LEVEL 100 MMOL/L (98-107); CREATININE FOR GFR 0.67 MG/DL (0.55-1.30); GLOMERULAR FILTRATION RATE > 60.0 (>32); GLUCOSE, FASTING 103 MG/DL (74-106); POTASSIUM SERUM 4.2 MMOL/L (3.5-5.1); SODIUM LEVEL 136 MMOL/L (136-145); TOTAL PROTEIN 7.7 G/DL (5.7-8.2)
[2023-11-25 18:39] LABS: HEMOGLOBIN A1c 5.5 % (4.0-6.0)
== END ==
LOC: M SFHCADAM 13:13
PROVIDERS: ATTEND Family Medicine
DX: G47.62 Sleep related leg cramps (principal); E11.21 Type 2 diabetes mellitus with diabetic nephropathy

== ENCOUNTER → 2024-01-13 | Outpatient (CLI) | payer MEDICARE, OTHER | LOC: M RAD 14:11 | PROVIDERS: ATTEND Physician Assistant Medical | DX: M79.652 Pain in left thigh (principal) ==

== ENCOUNTER 2024-10-31 18:08 | Inpatient (IN) | payer MEDICARE, OTHER ==
[~2024-10-31] VITALS: Ht 154.9 cm; Wt 54.7 kg
[~2024-10-31 18:08] MED LIST changes: -METO1TAB32; +METO1TAB32 PO
[2024-10-31 19:32] LABS: BASO % 0.3 % (0.0-1.0); EOS # 0.1 10^3/uL (0.0-0.5); EOS % 0.7 % (0.0-3.0); HEMATOCRIT 39.1 % (36.0-47.0); HEMOGLOBIN 13.2 g/dl (12.0-15.5); LYMPH # 0.8 10^3/uL (1.5-5.0); LYMPH % 5.5 % (24.0-44.0); MEAN CORPUSCULAR HEMOGLOBIN 33.6 pg (27.0-33.0); MEAN CORPUSCULAR HGB CONC 33.8 g/dl (32.0-36.5); MEAN CORPUSCULAR VOLUME 99.5 fl (80.0-96.0); MONO # 0.8 10^3/uL (0.0-0.8); MONO % 5.7 % (2.0-8.0); NEUTROPHILS # 12.2 10^3/uL (1.5-8.5); NEUTROPHILS % 87.4 % (36.0-66.0); PLATELET COUNT, AUTOMATED 302 10^3/uL (150-450); RED BLOOD COUNT 3.93 10^6/uL (4.00-5.40)
[2024-10-31] MEDS: MORPHINE 4 MG/ML 1ML VIAL IV ONE ×2 (19:35→21:39)
[2024-10-31 19:58] LABS: ALBUMIN 4.3 G/DL (3.2-5.2); BILIRUBIN,DIRECT 0.1 MG/DL (<0.4); BILIRUBIN,TOTAL 0.5 MG/DL (0.3-1.2); CALCIUM LEVEL 9.6 MG/DL (8.3-10.6); CREATININE FOR GFR 0.73 MG/DL (0.55-1.30); GLOMERULAR FILTRATION RATE 81.6 (>32); POTASSIUM SERUM 3.6 MMOL/L (3.5-5.1); TOTAL PROTEIN 8.1 G/DL (5.7-8.2)
[2024-10-31] MEDS ORDERED: ACETAMINOPHEN 325 MG TAB PO PRN (21:50)
[2024-10-31] MEDS ORDERED: ONDANSETRON 4MG 2ML VIAL IV PRN (21:50)
[2024-10-31] MEDS ORDERED: ACET-683 PO (21:51)
[2024-10-31] MEDS ORDERED: DOK100TA2 PO (21:51)
[2024-10-31] MEDS ORDERED: THERTAB19 PO (21:56)
[2024-10-31] MEDS ORDERED: POTA1TAB23 PO (21:56)
[2024-10-31] MEDS ORDERED: ATOR1TAB19 PO (21:56)
[2024-10-31] MEDS ORDERED: OMEP40CA5 PO (21:56)
[2024-10-31] MEDS ORDERED: FOLI1TAB11 PO (21:56)
[2024-10-31] MEDS ORDERED: HOME MED LIST COMPLETE! XX SCH (22:00)
[2024-10-31 23:09] LABS: INR 0.95; PARTIAL THROMBOPLASTIN TIME 25.7 SECONDS (24.8-34.2)
[2024-10-31 23:27] VITALS: BP 178/96; TEMP 97.6; O2SAT 98
[2024-10-31] MEDS: LR 1,000 ML IV SCH (23:30)
[2024-10-31] MEDS: KETOROLAC 30 MG/ML 1ML VIAL IV PRN (23:41)
[2024-11-01 05:21] VITALS: BP 170/73; TEMP 97.1; O2SAT 98
[2024-11-01] MEDS: MORPHINE 2 MG/ML 1ML VIAL IV PRN (05:36)
[2024-11-01 07:27] LABS: FOLATE > 24.00 NG/ML (>5.4)
[2024-11-01 07:46] VITALS: BP 147/67; TEMP 97.3; O2SAT 95
[2024-11-01] MEDS: PANTOPRAZOLE 40MG VIAL IV SCH (08:44)
[2024-11-01] MEDS: MULTIVITAMINS/MINERALS THERAP 1 TAB PO SCH (08:45)
[2024-11-01] MEDS: FOLIC ACID 1MG TAB PO SCH (08:45)
[2024-11-01] MEDS: DOCUSATE SODIUM 100MG CAPSULE PO SCH (08:45)
[2024-11-01] MEDS: ASCORBIC ACID 250 MG TAB PO SCH (08:45)
[2024-11-01] MEDS: MAGNESIUM OXIDE 400MG TAB (MAG-OX) PO SCH (08:45)
[2024-11-01] MEDS: ATORVASTATIN 10 MG TAB PO SCH (08:45)
[2024-11-01] MEDS: METOPROLOL TART 12.5 MG PER 1/2 TAB PO SCH (08:46)
[2024-11-01] MEDS: POTASSIUM CHLORIDE 10MEQ SR TABLET PO SCH (08:46)
[2024-11-01] MEDS ORDERED: GLUCAGON INJ 1MG VIAL SC PRN (10:20)
[2024-11-01] MEDS ORDERED: GLUCOSE 4 GM CHEW PO PRN (10:20)
[2024-11-01] MEDS ORDERED: DEXTROSE 50% 50ML SYRINGE IV PRN (10:20)
[2024-11-01 10:44] LABS: BLOOD UREA NITROGEN 13 MG/DL (9-23); CALCIUM LEVEL 8.5 MG/DL (8.3-10.6); CARBON DIOXIDE LEVEL 26 MMOL/L (20-31); CHLORIDE LEVEL 102 MMOL/L (98-107); CREATININE FOR GFR 0.58 MG/DL (0.55-1.30); GLOMERULAR FILTRATION RATE 89.7 (>32); GLUCOSE, FASTING 112 MG/DL (74-106); POTASSIUM SERUM 3.5 MMOL/L (3.5-5.1); SODIUM LEVEL 138 MMOL/L (136-145)
[2024-11-01 10:51] LABS: BASO % 0.5 % (0.0-1.0); EOS # 0.1 10^3/uL (0.0-0.5); EOS % 1.9 % (0.0-3.0); HEMATOCRIT 36.4 % (36.0-47.0); HEMOGLOBIN 12.2 g/dl (12.0-15.5); LYMPH # 0.9 10^3/uL (1.5-5.0); LYMPH % 14.4 % (24.0-44.0); MEAN CORPUSCULAR HEMOGLOBIN 33.7 pg (27.0-33.0); MEAN CORPUSCULAR HGB CONC 33.5 g/dl (32.0-36.5); MEAN CORPUSCULAR VOLUME 100.6 fl (80.0-96.0); MONO # 0.5 10^3/uL (0.0-0.8); MONO % 7.4 % (2.0-8.0); NEUTROPHILS # 4.7 10^3/uL (1.5-8.5); NEUTROPHILS % 75.6 % (36.0-66.0); PLATELET COUNT, AUTOMATED 230 10^3/uL (150-450); RED BLOOD COUNT 3.62 10^6/uL (4.00-5.40); WHITE BLOOD COUNT 6.2 10^3/uL (4.0-10.0)
[2024-11-01] MEDS: ACETAMINOPHEN 500 MG TAB PO SCH (11:09)
[2024-11-01 11:57] VITALS: BP 130/64; TEMP 96.8; O2SAT 94
[2024-11-01] MEDS: INSULIN LISPRO (NovoLOG) PER UNIT SC SCH ×2 (12:39→20:04)
[2024-11-01 15:53] VITALS: BP 119/58; TEMP 97.6; O2SAT 96
[2024-11-01 20:05] VITALS: BP 163/67; TEMP 98.6; O2SAT 98
[2024-11-02] VITALS (14 sets, daily range): BP systolic 102–149; BP diastolic 49–74; TEMP 97–99.1; O2SAT 85–100
[2024-11-02] MEDS: MORPHINE 2 MG/ML 1ML VIAL IV PRN (00:23)
[2024-11-02 05:01] LABS: BASO % 0.4 % (0.0-1.0); EOS # 0.2 10^3/uL (0.0-0.5); HEMATOCRIT 36.3 % (36.0-47.0); HEMOGLOBIN 12.3 g/dl (12.0-15.5); LYMPH % 19.7 % (24.0-44.0); MEAN CORPUSCULAR HEMOGLOBIN 33.9 pg (27.0-33.0); MEAN CORPUSCULAR HGB CONC 33.9 g/dl (32.0-36.5); MONO # 0.6 10^3/uL (0.0-0.8); MONO % 11.3 % (2.0-8.0); NEUTROPHILS # 3.4 10^3/uL (1.5-8.5); NEUTROPHILS % 64.4 % (36.0-66.0); PLATELET COUNT, AUTOMATED 222 10^3/uL (150-450); RED BLOOD COUNT 3.63 10^6/uL (4.00-5.40); WHITE BLOOD COUNT 5.3 10^3/uL (4.0-10.0)
[2024-11-02 05:18] LABS: CALCIUM LEVEL 8.5 MG/DL (8.3-10.6); CREATININE FOR GFR 0.71 MG/DL (0.55-1.30); GLOMERULAR FILTRATION RATE 84.3 (>32); POTASSIUM SERUM 3.8 MMOL/L (3.5-5.1)
[2024-11-02] MEDS ORDERED: fentaNYL 100 MCG/2 ML INJECTION As Ordered ONE (06:46)
[2024-11-02] MEDS ORDERED: ONDANSETRON 4MG 2ML VIAL As Ordered ONE (06:47)
[2024-11-02] MEDS ORDERED: propofoL 200 MG/20 ML VIAL As Ordered ONE (06:47)
[2024-11-02] MEDS ORDERED: SUGAMMADEX SODIUM 500 MG/5 ML VIAL (BRIDION) As Ordered ONE (06:47)
[2024-11-02] MEDS ORDERED: LIDOCAINE 2% 100MG/5ML SDV (FOR ANES.) As Ordered ONE (06:47)
[2024-11-02] MEDS ORDERED: ROCURONIUM BROMIDE 50MG/5ML VIAL As Ordered ONE (06:47)
[2024-11-02] MEDS: ceFAZolin 1GM VIAL As Ordered ONE (07:19)
[2024-11-02] MEDS: TRANEXAMIC ACID 100 MG/ML 10ML VIAL As Ordered ONE (11:40)
[2024-11-02] MEDS: ceFAZolin SODIUM 2 GM VIAL As Ordered ONE (12:02)
[2024-11-02] MEDS ORDERED: HYDROmorphone HCL 2MG/ML 1ML VIAL As Ordered ONE (12:10)
[2024-11-02] MEDS ORDERED: hydrALAZINE 20MG/ML 1ML VIAL As Ordered ONE (12:42)
[2024-11-02] MEDS ORDERED: PHENYLephrine 500MCG 5ML (100MCG/ML) SYRINGE As Ordered ONE (13:19)
[2024-11-02] MEDS ORDERED: KETOROLAC 30 MG/ML 1ML VIAL As Ordered ONE (13:23)
[2024-11-02] MEDS: VANCOMYCIN 1000MG/20ML VIAL As Ordered ONE (13:24)
[2024-11-02] MEDS ORDERED: LR 1,000 ML IV SCH (14:05)
[2024-11-02] MEDS ORDERED: GLUCAGON INJ 1MG VIAL SC PRN (14:05)
[2024-11-02] MEDS ORDERED: ONDANSETRON 4MG 2ML VIAL IV PRN (14:05)
[2024-11-02] MEDS ORDERED: DEXTROSE 50% 50ML SYRINGE IV PRN (14:05)
[2024-11-02] MEDS ORDERED: oxyCODONE 5MG TAB PO PRN (14:05)
[2024-11-02] MEDS ORDERED: GLUCOSE 4 GM CHEW PO PRN (14:05)
[2024-11-02] MEDS ORDERED: INSULIN LISPRO (NovoLOG) PER UNIT SC PRN (14:05)
[2024-11-02] MEDS ORDERED: HYDROMORPHONE HCL 0.5 MG/ 0.5 ML SYRINGE IV PRN (14:05)
[2024-11-02] MEDS ORDERED: fentaNYL 100 MCG/2 ML INJECTION IV PRN (14:05)
[2024-11-02] MEDS: ceFAZolin SODIUM 2 GM in DEXTROSE 5% (D5W) ADV/MINI-BAG 50 ML IV SCH (20:29)
[2024-11-03] MEDS: guaiFENesin 200 MG TAB PO ONE (00:12)
[2024-11-03 03:16] VITALS: BP 128/60; TEMP 98.8; O2SAT 99
[2024-11-03 05:41] LABS: BASO % 0.1 % (0.0-1.0); HEMATOCRIT 29.3 % (36.0-47.0); LYMPH # 0.9 10^3/uL (1.5-5.0); LYMPH % 8.5 % (24.0-44.0); MEAN CORPUSCULAR HGB CONC 34.5 g/dl (32.0-36.5); MEAN CORPUSCULAR VOLUME 98.7 fl (80.0-96.0); MONO % 10.2 % (2.0-8.0); NEUTROPHILS # 8.1 10^3/uL (1.5-8.5); NEUTROPHILS % 80.9 % (36.0-66.0); PLATELET COUNT, AUTOMATED 234 10^3/uL (150-450); RED BLOOD COUNT 2.97 10^6/uL (4.00-5.40)
[2024-11-03 05:42] LABS: HEMOGLOBIN 10.1 g/dl (12.0-15.5)
[2024-11-03 05:58] LABS: CREATININE FOR GFR 0.64 MG/DL (0.55-1.30); GLOMERULAR FILTRATION RATE 87.6 (>32); POTASSIUM SERUM 4.1 MMOL/L (3.5-5.1)
[2024-11-03 08:27] VITALS: BP 122/60; TEMP 99; O2SAT 99
[2024-11-03] MEDS: oxyCODONE 5MG TAB PO PRN (08:49)
[2024-11-03 11:55] LABS: HEMATOCRIT 30.4 % (36.0-47.0); HEMOGLOBIN 10.2 g/dl (12.0-15.5)
[2024-11-03 12:33] VITALS: BP 121/62; TEMP 98.9; O2SAT 98
== END 2024-11-03 14:37 | DRG 522 ==
LOC: M ED 18:08 → EDBD 18:08 → M ED INP 21:48 → M PCU 23:09
PROVIDERS: ADMIT Student in an Organized Health Care Education/Training Program; ATTEND Student in an Organized Health Care Education/Training Program
PROC: 0SRS0JZ Replacement of Left Hip Joint, Femoral Surface with Synthetic Substitute, Open Approach (ICD-10-PCS; principal; 2024-11-02 10:30)
DX: S72.002A Fracture of unspecified part of neck of left femur, initial encounter for closed fracture (principal); Z66 Do not resuscitate; M06.9 Rheumatoid arthritis, unspecified; I12.9 Hypertensive chronic kidney disease with stage 1 through stage 4 chronic kidney disease, or unspecified chronic kidney disease; E78.5 Hyperlipidemia, unspecified; N18.9 Chronic kidney disease, unspecified; E11.22 Type 2 diabetes mellitus with diabetic chronic kidney disease; E11.51 Type 2 diabetes mellitus with diabetic peripheral angiopathy without gangrene; I73.9 Peripheral vascular disease, unspecified; K21.9 Gastro-esophageal reflux disease without esophagitis; I49.5 Sick sinus syndrome; R33.9 Retention of urine, unspecified; M81.0 Age-related osteoporosis without current pathological fracture; R26.89 Other abnormalities of gait and mobility; R29.6 Repeated falls; Z98.41 Cataract extraction status, right eye; Z98.42 Cataract extraction status, left eye; W19.XXXA Unspecified fall, initial encounter; Y92.009 Unspecified place in unspecified non-institutional (private) residence as the place of occurrence of the external cause; Z79.899 Other long term (current) drug therapy; Z88.1 Allergy status to other antibiotic agents; Z88.2 Allergy status to sulfonamides; Z88.8 Allergy status to other drugs, medicaments and biological substances; Z95.0 Presence of cardiac pacemaker

== ENCOUNTER → 2024-11-14 | Outpatient (CLI) | payer MEDICARE, OTHER ==
[~2024-11-14] MED LIST changes: +ACET-683 PO; +DOK100TA2 PO; +OMEP40CA5 PO; +OXYC-517 PO; +POTA1TAB23 PO; +THERTAB19 PO
== END ==
LOC: M SOG 07:09
PROVIDERS: ATTEND Physician Assistant
DX: S72.002A Fracture of unspecified part of neck of left femur, initial encounter for closed fracture (principal); W18.30XA Fall on same level, unspecified, initial encounter; Y92.009 Unspecified place in unspecified non-institutional (private) residence as the place of occurrence of the external cause

== ENCOUNTER → 2025-02-20 | Outpatient (REF) | payer MEDICARE, OTHER ==
[~2025-02-20] MED LIST changes: -VITA100T14 PO; +VITA100T69 PO
[2025-02-20 17:01] LABS: ALT/SGPT 14.0 U/L (7.0-40); AST/SGOT 27.0 U/L (<34); CALCIUM LEVEL 10.2 MG/DL (8.3-10.6); CARBON DIOXIDE LEVEL 28.0 MMOL/L (20-31); CHLORIDE LEVEL 101.0 MMOL/L (98-107); CREATININE FOR GFR 0.91 MG/DL (0.55-1.30); GLOMERULAR FILTRATION RATE 62.6 (>32); POTASSIUM SERUM 4.4 MMOL/L (3.5-5.1); SODIUM LEVEL 140.0 MMOL/L (136-145)
[2025-02-20 17:20] LABS: ESTIMATED AVERAGE GLUCOSE 126.0 MG/DL (60-110)
== END ==
LOC: M SFHCADAM 11:19
PROVIDERS: ATTEND Family Medicine
DX: E11.21 Type 2 diabetes mellitus with diabetic nephropathy (principal)